=== PATIENT | female | born 1955 | race Caucasian/White ===

== ENCOUNTER → 2016-06-15 | Outpatient (CLI) | payer BC ==
--- NOTE | 2016-06-15 10:02 | US ---
EXAMINATION TYPE: US abdomen complete DATE OF EXAM: 06/15/2016 9:04 AM COMPARISON: CT abdomen pelvis June 01, 2010 CLINICAL HISTORY: Epigastric Pain R10.13. EXAM MEASUREMENTS: Liver Length: 15.9 cm Gallbladder Wall: 0.2 cm CBD: 0.5 cm Spleen: 13.1 cm Right Kidney: 9.7 x 4.4 x 6.2 cm Left Kidney: 10.4 x 5.2 x 5.1 cm TECHNOLOGIST IMPRESSION: no gross abnormality identified Pancreas: Obscured by bowel gas Liver: wnl Gallbladder:no stones Evidence for sonographic Baker's sign: no CBD: wnl Spleen: wnl Right Kidney: No hydronephrosis or masses seen Left Kidney: No hydronephrosis or masses seen Upper IVC: wnl Abd Aorta: wnl The liver is homogenous. The intrahepatic portion of the IVC and proximal abdominal aorta are within normal limits. There is no evidence of cholelithiasis. Common bile duct is unremarkable. The panc reas is suboptimally evaluated due to shadowing from overlying bowel gas. The spleen is mildly enlar ged without focal intrasplenic mass identified. Kidneys are symmetric and free of hydronephrosis. N o renal lesions are seen. IMPRESSION: No significant acute finding is seen to account for patient's symptoms. Mild splenomegaly is noted.
== END | disposition home or self-care (01) ==
LOC: RADUSWWP 08:37
PROVIDERS: ATTEND Family Medicine
DX: R16.1 Splenomegaly, not elsewhere classified (principal)
CPT/HCPCS: 76700

== ENCOUNTER 2016-06-17 09:25 | Emergency (ER) | payer BC ==
[2016-06-17] MEDS ORDERED: SODIUM CHLORIDE 0.9% 1,000 ML IV STA (09:56)
[2016-06-17] MEDS ORDERED: ONDANSETRON 4 MG/2 ML VIAL IVP STA (09:56)
--- NOTE | 2016-06-17 09:59 | ED ---
General Adult HPI - General Chief complaint: Urogenital Stated complaint: POSS UTI Time Seen by Provider: 06/17/16 09:46 Source: patient, RN notes reviewed Mode of arrival: ambulatory Limitations: no limitations - History of Present Illness Initial comments: Patient is a 60-year-old female who presents emergency room today with a chief complaint of left-sided back pain. Does admit that she was at the family doctor earlier in the week diagnosed with urinary tract infection and started on Bactrim. Patient states that she feels that the symptoms are not improving or getting worse. She states she felt a little lightheaded today. She states that her appetite is been decreased. States she's had some pain to the left side of her lower back. Denies any injury or trauma. States tried Tylenol last night. Does admit that she had a low-grade fever 10 1F at home. Patient admits that she's feeling nauseated. Patient denies any other complaints or symptoms currently. Patient denies any recent fever, chills, shortness of breath, chest pain, numbness or tingling, dysuria or hematuria, constipation or diarrhea, headaches or visual changes, or any other complaints. - Related Data Home Medications Medication Instructions Recorded Confirmed Bisacodyl [Dulcolax] 5 mg PO DAILY 06/17/16 06/17/16 Omeprazole [PriLOSEC] 20 mg PO AC-BID 06/17/16 06/17/16 Sertraline HCl [Zoloft] 25 mg PO DAILY 06/17/16 06/17/16 Sulfamethox-Tmp 800-160Mg [Bactrim 1 tab PO Q12HR 06/17/16 06/17/16 DS 800-160 mg] Allergies Allergy/AdvReac Type Severity Reaction Status Date / Time No Known Allergies Allergy Verified 06/17/16 09:34 Review of Systems ROS Statement: Those systems with pertinent positive or pertinent negative responses have been documented in the HPI. ROS Other: All systems not noted in ROS Statement are negative. Past Medical History Past Medical History: GERD/Reflux Additional Past Medical History / Comment(s): ulcers History of Any Multi-Drug Resistant Organisms: None Reported Past Surgical History: Hysterectomy Additional Past Surgical History / Comment(s): lap band, bladder lift Past Psychological History: No Psychological Hx Reported Smoking Status: Never smoker Past Alcohol Use History: None Reported Past Drug Use History: None Reported General Exam - General Exam Comments Initial Comments: General: The patient is awake and alert, in no distress, and does not appear acutely ill. Eye: Pupils are equal, round and reactive to light, extra-ocular movements are intact. No nystagmus. There is normal conjunctiva bilaterally. No signs of icterus. Ears, nose, mouth and throat: There are moist mucous membranes and no oral lesions. Neck: The neck is supple, there is no tenderness or JVD. Cardiovascular: There is a regular rate and rhythm. No murmur, rub or gallop is appreciated. Respiratory: Lungs are clear to auscultation, respirations are non-labored, breath sounds are equal. No wheezes, stridor, rales, or rhonchi. Gastrointestinal: Soft, non-distended, non-tender abdomen without masses or organomegaly noted. There is no rebound or guarding present. No CVA tenderness. Bowel sounds are unremarkable. Musculoskeletal: Normal ROM, no tenderness. Strength 5/5. Sensation intact. Pulses equal bilaterally 2+. Neurological: A&O x 3. CN II-XII intact, There are no obvious motor or sensory deficits. Coordination appears grossly intact. Speech is normal. Skin: Skin is warm and dry and no rashes or lesions are noted. Psychiatric: Cooperative, appropriate mood & affect, normal judgment. Limitations: no limitations Course Vital Signs 06/17/16 06/17/16 09:30 12:08 Temperature 98.7 F 98 F Pulse Rate 114 H 98 Respiratory 20 18 Rate Blood Pressure 120/74 126/68 O2 Sat by Pulse 98 98 Oximetry Medical Decision Making - Medical Decision Making Case discussed in detail with attending physician Dr. Ac. Patient reexamined at this time shows no signs of distress. Patient will be discharged home and asked CT is negative. Patient urinalysis review does show calcium oxide was discussed about possible passage of a kidney stone. She states no history of stones. At this time she is resting comfortably. Her lab work is unremarkable. No sign of infection. Currently on Bactrim and advise continue this antibiotic culture currently pending at this time. Advised close follow- up the family doctor over the next 2 days. Advised return here to emergency room if any symptoms increase or worsen or for any other concerns. Patient and family member at bedside state understanding and are in agreement with this plan. - Lab Data Result diagrams: 06/17/16 10:20 06/17/16 10:20 Lab Results 06/17/16 06/17/16 06/17/16 Range/Units 10:20 10:20 10:20 WBC 3.7 L (3.8-10.6) k/uL RBC 4.77 (3.80-5.40) m/uL Hgb 13.7 (11.4-16.0) gm/dL Hct 41.1 (34.0-46.0) % MCV 86.0 (80.0-100.0) fL MCH 28.7 (25.0-35.0) pg MCHC 33.3 (31.0-37.0) g/dL RDW 13.6 (11.5-15.5) % Plt Count 156 (150-450) k/uL Neutrophils % 86 % Lymphocytes % 5 % Monocytes % 7 % Eosinophils % 2 % Basophils % 0 % Neutrophils # 3.2 (1.3-7.7) k/uL Lymphocytes # 0.2 L (1.0-4.8) k/uL Monocytes # 0.2 (0-1.0) k/uL Eosinophils # 0.1 (0-0.7) k/uL Basophils # 0.0 (0-0.2) k/uL Sodium 139 (137-145) mmol/L Potassium 4.1 (3.5-5.1) mmol/L Chloride 103 (98-107) mmol/L Carbon Dioxide 22 (22-30) mmol/L Anion Gap 14 mmol/L BUN 13 (7-17) mg/dL Creatinine 0.97 (0.52-1.04) mg/dL Est GFR (MDRD) Af Amer >60 (>60 ml/min/1.73 sqM) Est GFR (MDRD) Non-Af 59 (>60 ml/min/1.73 sqM) Glucose 96 (74-99) mg/dL Plasma Lactic Acid Carlos (0.7-2.0) mmol/L Calcium 9.2 (8.4-10.2) mg/dL Total Bilirubin 0.9 (0.2-1.3) mg/dL AST 43 H (14-36) U/L ALT 37 (9-52) U/L Alkaline Phosphatase 78 (38-126) U/L Total Protein 7.2 (6.3-8.2) g/dL Albumin 4.1 (3.5-5.0) g/dL Amylase 48 (30-110) U/L Lipase 54 (23-300) U/L Urine Color Yellow Urine Appearance Turbid H (Clear) Urine pH 6.0 (5.0-8.0) Ur Specific [place] 1.022 (1.001-1.035) Urine Protein 1+ H (Negative) Urine Glucose (UA) Negative (Negative) Urine Ketones 3+ H (Negative) Urine Blood Negative (Negative) Urine Nitrite Negative (Negative) Urine Bilirubin 1+ H (Negative) Urine Urobilinogen 2.0 (<2.0) mg/dL Ur Leukocyte Esterase Moderate H (Negative) Urine RBC 13 H (0-5) /hpf Ur Squamous Epith Cells 25 H (0-4) /hpf Calcium Oxalate Crystal Many H (None) /hpf Urine Bacteria Rare H (None) /hpf Urine Mucus Many H (None) /hpf 06/17/ Range/Units 10:20 WBC (3.8-10.6) k/uL RBC (3.80-5.40) m/uL Hgb (11.4-16.0) gm/dL Hct (34.0-46.0) % MCV (80.0-100.0) fL MCH (25.0-35.0) pg MCHC (31.0-37.0) g/dL RDW (11.5-15.5) % Plt Count (150-450) k/uL Neutrophils % % Lymphocytes % % Monocytes % % Eosinophils % % Basophils % % Neutrophils # (1.3-7.7) k/uL Lymphocytes # (1.0-4.8) k/uL Monocytes # (0-1.0) k/uL Eosinophils # (0-0.7) k/uL Basophils # (0-0.2) k/uL Sodium (137-145) mmol/L Potassium (3.5-5.1) mmol/L Chloride (98-107) mmol/L Carbon Dioxide (22-30) mmol/L Anion Gap mmol/L BUN (7-17) mg/dL Creatinine (0.52-1.04) mg/dL Est GFR (MDRD) Af Amer (>60 ml/min/1.73 sqM) Est GFR (MDRD) Non-Af (>60 ml/min/1.73 sqM) Glucose (74-99) mg/dL Plasma Lactic Acid Carlos 1.0 (0.7-2.0) mmol/L Calcium (8.4-10.2) mg/dL Total Bilirubin (0.2-1.3) mg/dL AST (14-36) U/L ALT (9-52) U/L Alkaline Phosphatase (38-126) U/L Total Protein (6.3-8.2) g/dL Albumin (3.5-5.0) g/dL Amylase (30-110) U/L Lipase (23-300) U/L Urine Color Urine Appearance (Clear) Urine pH (5.0-8.0) Ur Specific [place] (1.001-1.035) Urine Protein (Negative) Urine Glucose (UA) (Negative) Urine Ketones (Negative) Urine Blood (Negative) Urine Nitrite (Negative) Urine Bilirubin (Negative) Urine Urobilinogen (<2.0) mg/dL Ur Leukocyte Esterase (Negative) Urine RBC (0-5) /hpf Ur Squamous Epith Cells (0-4) /hpf Calcium Oxalate Crystal (None) /hpf Urine Bacteria (None) /hpf Urine Mucus (None) /hpf Disposition Clinical Impression: Flank pain Disposition: HOME SELF-CARE Condition: Good Instructions: Flank Pain (ED) Additional Instructions: Please use medication as discussed. Please follow-up with family doctor in the next 2 days. Please return to emergency room if the symptoms increase or worsen or for any other concerns. Time of Disposition: 12:43
[2016-06-17 10:45] LABS: Appearance,Urine Turbid (Clear); Bacteria,Urine Rare /hpf; Bilirubin,Urine 1+ (Negative); Calcium Oxalate Crystals,Urine Many /hpf; Glucose,Urine (UA) Negative (Negative); Ketones,Urine 3+ (Negative); Leukocyte Esterase,Urine Moderate (Negative); Mucus,Urine Many /hpf; Nitrite,Urine Negative (Negative); Particle Count 12230; Protein,Urine 1+ (Negative); RBC,Urine 13 /hpf (0-5); Specific Gravity,Urine 1.022 (1.001-1.035); Squamous Epithelial Cell,Urine 25 /hpf (0-4); UA Billing (MACRO vs. MICRO) MICRO
[2016-06-17 10:47] LABS: ALT 37 U/L (9-52); AST 43 U/L (14-36); Alkaline Phosphatase 78 U/L (38-126); Amylase 48 U/L (30-110); Anion Gap 14 mmol/L; Blood Urea Nitrogen 13 mg/dL (7-17); Calcium 9.2 mg/dL (8.4-10.2); Carbon Dioxide 22 mmol/L (22-30); Chloride 103 mmol/L (98-107); Glucose 96 mg/dL (74-99); Non-African American GFR(MDRD) 59 (>60 ml/min/1.73 sqM); Potassium 4.1 mmol/L (3.5-5.1); Sodium 139 mmol/L (137-145); Total Bilirubin 0.9 mg/dL (0.2-1.3); Total Protein 7.2 g/dL (6.3-8.2)
[2016-06-17 10:52] LABS: Basophils % (A) 0 %; CH 29.2; CHCM 34.1; Eosinophils # (A) 0.1 k/uL (0-0.7); Eosinophils % (A) 2 %; HCT 41.1 % (34.0-46.0); HDW 2.52; HGB 13.7 gm/dL (11.4-16.0); Luc # (Auto) 0.06; Luc % (Auto) 2; Lymphocytes # (A) 0.2 k/uL (1.0-4.8); Lymphocytes % (A) 5 %; MCH 28.7 pg (25.0-35.0); MCHC 33.3 g/dL (31.0-37.0); Mean Platelet Volume 8.1; Monocytes # (A) 0.2 k/uL (0-1.0); Monocytes % (A) 7 %; Neutrophils # (A) 3.2 k/uL (1.3-7.7); Neutrophils % (A) 86 %; RBC 4.77 m/uL (3.80-5.40); RDW 13.6 % (11.5-15.5); WBC 3.7 k/uL (3.8-10.6); WBC (Perox) 3.88
[2016-06-17] MEDS ORDERED: KETOROLAC 30 MG/ML 1 ML VIAL IVP STA (11:08)
--- NOTE | 2016-06-17 11:59 | CT ---
EXAMINATION TYPE: CT abdomen pelvis wo con DATE OF EXAM: 06/17/2016 11:45 AM HISTORY: Possible UTI, pain. CT DLP: 1083.10 mGycm. Automated Exposure Control for Dose Reduction was Utilized. TECHNIQUE: CT scan of the abdomen and pelvis is performed without oral or IV contrast. COMPARISON: CT abdomen pelvis June 01, 2010 FINDINGS: Within the limitations of a non-contrast study, the following observations are made. LUNG BASES: No significant abnormality is appreciated. LIVER/GB: Liver is diffusely low dense consistent with fatty infiltration. PANCREAS: No significant abnormality is seen. SPLEEN: Spleen remains mildly enlarged at 14.3 cm on long axis on axial image 12. ADRENALS: No significant abnormality is seen. KIDNEYS: No renal stones or hydronephrosis is seen bilaterally. Bladder is poorly distended otherwise is unremarkable without intraluminal calculus or suspicious wall thickening BOWEL: Fluid-filled cecum is present. Correlate for diarrhea. No suspicious small or large bowel dila tation is noted. Lap band device is stable and satisfactory in position. Small hiatal hernia is noted . GENITAL ORGANS: Uterus is surgically absent. LYMPH NODES: No greater than 1cm abdominal or pelvic lymph nodes are appreciated. OSSEOUS STRUCTURES: There is disc space narrowing with vacuum disc phenomenon at lumbosacral junction . Posterior spur disc complex is present. There is additional anterior spurring with disc space narro wing and sclerosis anteriorly in the lower thoracic spine. There is facet arthropathy in the lower valentine mbar spine. OTHER: No significant additional abnormality is seen. IMPRESSION: No renal stones or hydronephrosis is seen bilaterally. No significant acute finding is se en to account for patient's symptoms.
[2016-06-17 12:54] VITALS: BP 101/55; PULSE 83; RESP 16; TEMP 97.8
--- NOTE | 2016-06-17 17:29 | XR ---
Abdomen HISTORY: Pain Correlation to CT abdomen pelvis same date Frontal view of the abdomen on 2 images. Patient is post lap band. Lung bases are clear. No bowel obstruction or pneumoperitoneum. Density pre sent within the right hemipelvis may be due to postop change or luminal medication. IMPRESSION: Postop changes.
== END 2016-06-17 12:53 | disposition home or self-care (01) ==
LOC: EC 09:25
DX: R10.9 Unspecified abdominal pain (principal); R63.0 Anorexia; M54.9 Dorsalgia, unspecified; K21.9 Gastro-esophageal reflux disease without esophagitis; R42 Dizziness and giddiness; R11.0 Nausea; Z79.899 Other long term (current) drug therapy; Z87.19 Personal history of other diseases of the digestive system; Z87.440 Personal history of urinary (tract) infections; Z98.84 Bariatric surgery status; Z90.710 Acquired absence of both cervix and uterus
CPT/HCPCS: 99284; 96374; 96375; 96361; 36415; 80053; 82150; 83605; 83690; 85025; 81001; 87040; 87086; 74000; 74176; J2405; J1885

== ENCOUNTER → 2017-05-30 | Outpatient (CLI) | payer BC ==
--- NOTE | 2017-05-31 08:19 | MM ---
Reason for exam: screening (asymptomatic). Last mammogram was performed 1 year and 2 months ago. History: Patient is postmenopausal. Taking estrogen. Physical Findings: A clinical breast exam by your physician is recommended on an annual basis and results should be correlated with mammographic findings. MG Screening Mammo w CAD Bilateral CC and MLO view(s) were taken. Prior study comparison: March 14, 2016, bilateral MG screening mammo w CAD. March 30, 2015, bilateral MG screening mammo w CAD. There are scattered fibroglandular densities. There is no discrete abnormality. No significant changes when compared with prior studies. ASSESSMENT: Negative, BI-RAD 1 RECOMMENDATION: Routine screening mammogram of both breasts in 1 year.
== END | disposition home or self-care (01) ==
LOC: RADMAMWWP 08:25
PROVIDERS: ATTEND Obstetrics & Gynecology
DX: Z12.31 Encounter for screening mammogram for malignant neoplasm of breast (principal)
CPT/HCPCS: 77067

== ENCOUNTER → 2018-10-09 | Outpatient (CLI) | payer BC ==
--- NOTE | 2018-10-10 10:42 | MM ---
Reason for exam: screening (asymptomatic). Last mammogram was performed 1 year and 4 months ago. History: Patient is postmenopausal. Taking estrogen. Physical Findings: A clinical breast exam by your physician is recommended on an annual basis and results should be correlated with mammographic findings. MG Screening Mammo w CAD Bilateral CC and MLO view(s) were taken. Prior study comparison: May 30, 2017, bilateral MG screening mammo w CAD. March 14, 2016, bilateral MG screening mammo w CAD. There are scattered fibroglandular densities. Benign appearing bilateral calcifications. No suspicious abnormality. No significant changes when compared with prior studies. ASSESSMENT: Benign, BI-RAD 2 RECOMMENDATION: Routine screening mammogram of both breasts in 1 year.
== END | disposition home or self-care (01) ==
LOC: RADMAMWWP 07:52
PROVIDERS: ATTEND Family Medicine
DX: Z12.31 Encounter for screening mammogram for malignant neoplasm of breast (principal)
CPT/HCPCS: 77067

== ENCOUNTER 2019-09-03 22:10 | Observation (INO) | payer BC ==
[2019-09-03] MEDS ORDERED: ONDANSETRON 4 MG/2 ML VIAL IVP STA (22:51)
[2019-09-03] MEDS ORDERED: SODIUM CHLORIDE 0.9% 1,000 ML IV STA (22:51)
[2019-09-03] MEDS ORDERED: MORPHINE SULFATE 4 MG/ML SYRINGE IV STA (22:51)
--- NOTE | 2019-09-03 23:01 | ED ---
Abdominal Pain HPI - General Source: patient Mode of arrival: wheelchair Limitations: no limitations <Rupal Gómez - Last Filed: 09/04/19 02:57> <Lyudmila Calhoun - Last Filed: 09/04/19 20:23> - General Chief Complaint: Abdominal Pain Stated Complaint: Abd pain, back pain Time Seen by Provider: 09/03/19 22:45 - History of Present Illness Initial Comments: Patient is a 63-year-old female presenting to the emergency department with complaints of abdominal pain. She states she has been having some lower a bdominal pressure for the past month but then today around 4 PM, she started having severe upper abdominal pain has been constant in nature. She states the pain radiated across her entire upper abdomen with some radiation into her back. She admits to mild nausea, no vomiting. She states she's never had pain like this before. She does admit to partial hysterectomy. She denies any fever, chills, chest pain, shortness of breath. She has no further complaints at this time. Upon arrival to the ER, blood pressure is elevated at 147 /111, rest of vitals are normal. (Rupal Gómez) - Related Data Home Medications Medication Instructions Recorded Confirmed Sertraline HCl [Zoloft] 25 mg PO DAILY 06/17/16 09/04/19 Omeprazole [PriLOSEC] 40 mg PO DAILY 09/04/19 09/04/19 Allergies Allergy/AdvReac Type Severity Reaction Status Date / Time sulfamethoxazole Allergy Unknown Verified 09/04/19 08:36 [From Bactrim] trimethoprim [From Bactrim] Allergy Unknown Verified 09/04/19 08:36 Review of Systems ROS Other: All systems not noted in ROS Statement are negative. <Rupal Gómez - Last Filed: 09/04/19 02:57> ROS Other: All systems not noted in ROS Statement are negative. <Lyudmila Calhoun - Last Filed: 09/04/19 20:23> ROS Statement: Those systems with pertinent positive or pertinent negative responses have been documented in the HPI. Past Medical History Past Medical History: GERD/Reflux Additional Past Medical History / Comment(s): ulcers History of Any Multi-Drug Resistant Organisms: None Reported Past Surgical History: Bladder Surgery, Hysterectomy Additional Past Surgical History / Comment(s): lap band, bladder lift Past Psychological History: Anxiety Smoking Status: Never smoker Past Alcohol Use History: None Reported Past Drug Use History: None Reported <Rupal Gómez - Last Filed: 09/04/19 02:57> - Past Family History Father Additional Family Medical History / Comment(s): pancreatic CA Mother Family Medical History: No Reported History <Lyudmila Calhoun P - Last Filed: 09/04/19 20:23> General Exam Limitations: no limitations <Rupal Gómez - Last Filed: 09/04/19 02:57> - General Exam Comments Initial Comments: GENERAL: Patient appears diaphoretic, holding abdominal area, appears to be in moderate distress. HEAD: Atraumatic, normocephalic. EYES: Pupils equal round and reactive to light, extraocular movements intact, sclera anicteric, conjunctiva are normal. ENT: TMs normal, nares patent, oropharynx clear without exudates. Moist mucous membranes. NECK: Normal range of motion, supple without lymphadenopathy or JVD. LUNGS: Breath sounds clear to auscultation bilaterally and equal. No wheezes rales or rhonchi. HEART: Regular rate and rhythm without murmurs, rubs or gallops. ABDOMEN: Mild tenderness to palpation of the lower abdomen, severe tenderness with palpation of the entire upper abdomen. It does not appear distended. Hypoactive bowel sounds. No masses appreciated. : Deferred EXTREMITIES: Normal range of motion, no pitting or edema. No clubbing or cyanosis. NEUROLOGICAL: Normal speech, normal gait. SKIN: Warm, Dry, normal turgor, no rashes or lesions noted. (Rupal Gómez) Course Vital Signs 09/03/19 09/04/19 09/04/19 22:36 01:32 01:46 Temperature 97.6 F 98.5 F Pulse Rate 70 66 Pulse Rate [ 60 Pulse Oximetery ] Respiratory 18 16 16 Rate Blood Pressure 147/111 111/68 Blood Pressure 111/62 [Right Arm Supine] O2 Sat by Pulse 99 96 97 Oximetry Medical Decision Making - Lab Data Result diagrams: 09/03/19 23:09 09/03/19 23:09 <Rupal Gómez - Last Filed: 09/04/19 02:57> - Lab Data Result diagrams: 09/03/19 23:09 09/03/19 23:09 <Lyudmila Calhoun - Last Filed: 09/04/19 20:23> - Medical Decision Making Patient is a 63-year-old female here for upper abdominal pain with a sudden and severe onset this afternoon. Patient is also had lower abdominal discomfort for 1 month. Lab work shows no leukocytosis, lactic acid was 2.1, no other acute abnormalities. Urine shows no signs of infection. Given the sudden and severe nature of abdominal pain, a CTA was ordered and shows no evidence of aneurysm or dissection. There are distended loops of mid small bowel consistent with ileus, partial mechanical obstruction is not excluded. There also appears to be an abnormality in the pelvic region. I did order a pelvic ultrasound which will be performed in the morning. Patient will be admitted for intractable abdominal pain. Patient is in agreement with this plan of care. We will continue patient with pain control as well as fluids and Zofran as needed. Case discussed with Dr. Calhoun. (Rupal Gómez) - Lab Data Lab Results 09/03/19 09/03/19 09/03/19 Range/Units 23:09 23:09 23:09 WBC (3.8-10.6) k/uL RBC (3.80-5.40) m/uL Hgb (11.4-16.0) gm/dL Hct (34.0-46.0) % MCV (80.0-100.0) fL MCH (25.0-35.0) pg MCHC (31.0-37.0) g/dL RDW (11.5-15.5) % Plt Count (150-450) k/uL Neutrophils % % Lymphocytes % % Monocytes % % Eosinophils % % Basophils % % Neutrophils # (1.3-7.7) k/uL Lymphocytes # (1.0-4.8) k/uL Monocytes # (0-1.0) k/uL Eosinophils # (0-0.7) k/uL Basophils # (0-0.2) k/uL PT 10.0 (9.0-12.0) sec INR 1.0 (<1.2) APTT 26.4 (22.0-30.0) sec Sodium 136 L (137-145) mmol/L Potassium 3.7 (3.5-5.1) mmol/L Chloride 103 (98-107) mmol/L Carbon Dioxide 24 (22-30) mmol/L Anion Gap 9 mmol/L BUN 9 (7-17) mg/dL Creatinine 0.65 (0.52-1.04) mg/dL Est GFR (CKD-EPI)AfAm >90 (>60 ml/min/1.73 sqM) Est GFR (CKD-EPI)NonAf >90 (>60 ml/min/1.73 sqM) Glucose 127 H (74-99) mg/dL Lactic Ac Sepsis Rflx Plasma Lactic Acid Carlos 2.1 H* (0.7-2.0) mmol/L Calcium 9.8 (8.4-10.2) mg/dL Magnesium 1.9 (1.6-2.3) mg/dL Total Bilirubin 0.9 (0.2-1.3) mg/dL AST 28 (14-36) U/L ALT 16 (4-34) U/L Alkaline Phosphatase 87 (38-126) U/L Total Protein 7.2 (6.3-8.2) g/dL Albumin 4.5 (3.5-5.0) g/dL Amylase 61 (30-110) U/L Lipase 68 (23-300) U/L Urine Color Urine Appearance (Clear) Urine pH (5.0-8.0) Ur Specific [place] (1.001-1.035) Urine Protein (Negative) Urine Glucose (UA) (Negative) Urine Ketones (Negative) Urine Blood (Negative) Urine Nitrite (Negative) Urine Bilirubin (Negative) Urine Urobilinogen (<2.0) mg/dL Ur Leukocyte Esterase (Negative) 09/03/19 09/03/19 09/04/19 Range/Units 23:09 23:38 00:23 WBC 8.3 (3.8-10.6) k/uL RBC 4.98 (3.80-5.40) m/uL Hgb 13.8 (11.4-16.0) gm/dL Hct 43.2 (34.0-46.0) % MCV 86.9 (80.0-100.0) fL MCH 27.8 (25.0-35.0) pg MCHC 32.0 (31.0-37.0) g/dL RDW 13.5 (11.5-15.5) % Plt Count 255 (150-450) k/uL Neutrophils % 78 % Lymphocytes % 14 % Monocytes % 5 % Eosinophils % 1 % Basophils % 0 % Neutrophils # 6.5 (1.3-7.7) k/uL Lymphocytes # 1.2 (1.0-4.8) k/uL Monocytes # 0.5 (0-1.0) k/uL Eosinophils # 0.1 (0-0.7) k/uL Basophils # 0.0 (0-0.2) k/uL PT (9.0-12.0) sec INR (<1.2) APTT (22.0-30.0) sec Sodium (137-145) mmol/L Potassium (3.5-5.1) mmol/L Chloride (98-107) mmol/L Carbon Dioxide (22-30) mmol/L Anion Gap mmol/L BUN (7-17) mg/dL Creatinine (0.52-1.04) mg/dL Est GFR (CKD-EPI)AfAm (>60 ml/min/1.73 sqM) Est GFR (CKD-EPI)NonAf (>60 ml/min/1.73 sqM) Glucose (74-99) mg/dL Lactic Ac Sepsis Rflx Y Plasma Lactic Acid Carlos (0.7-2.0) mmol/L Calcium (8.4-10.2) mg/dL Magnesium (1.6-2.3) mg/dL Total Bilirubin (0.2-1.3) mg/dL AST (14-36) U/L ALT (4-34) U/L Alkaline Phosphatase (38-126) U/L Total Protein (6.3-8.2) g/dL Albumin (3.5-5.0) g/dL Amylase (30-110) U/L Lipase (23-300) U/L Urine Color Yellow Urine Appearance Clear (Clear) Urine pH 6.5 (5.0-8.0) Ur Specific [place] >1.050 H (1.001-1.035) Urine Protein Negative (Negative) Urine Glucose (UA) Negative (Negative) Urine Ketones 1+ H (Negative) Urine Blood Negative (Negative) Urine Nitrite Negative (Negative) Urine Bilirubin Negative (Negative) Urine Urobilinogen <2.0 (<2.0) mg/dL Ur Leukocyte Esterase Negative (Negative) Disposition Is patient prescribed a controlled substance at d/c from ED?: No Decision Date: 09/04/19 Decision Time: 01:24 <Rupal Gómez - Last Filed: 09/04/19 02:57> <Lyudmila Calhoun - Last Filed: 09/04/19 20:23> Clinical Impression: Intractable abdominal pain, Nausea Disposition: ADMITTED IP TO THIS HOSP Condition: Stable
[2019-09-03 23:22] LABS: Basophils % (A) 0 %; Eosinophils # (A) 0.1 k/uL (0-0.7); Eosinophils % (A) 1 %; HCT 43.2 % (34.0-46.0); HGB 13.8 gm/dL (11.4-16.0); Lymphocytes # (A) 1.2 k/uL (1.0-4.8); Lymphocytes % (A) 14 %; MCH 27.8 pg (25.0-35.0); MCV 86.9 fL (80.0-100.0); Monocytes # (A) 0.5 k/uL (0-1.0); Monocytes % (A) 5 %; Neutrophils # (A) 6.5 k/uL (1.3-7.7); Neutrophils % (A) 78 %; Platelet Count 255 k/uL (150-450); RBC 4.98 m/uL (3.80-5.40); RDW 13.5 % (11.5-15.5); WBC 8.3 k/uL (3.8-10.6)
[2019-09-03 23:33] LABS: ALT 16 U/L (4-34); AST 28 U/L (14-36); African American GFR (CKD) >90 (>60 ml/min/1.73 sqM); Albumin 4.5 g/dL (3.5-5.0); Alkaline Phosphatase 87 U/L (38-126); Amylase 61 U/L (30-110); Anion Gap 9 mmol/L; Blood Urea Nitrogen 9 mg/dL (7-17); Calcium 9.8 mg/dL (8.4-10.2); Carbon Dioxide 24 mmol/L (22-30); Chloride 103 mmol/L (98-107); Glucose 127 mg/dL (74-99); Magnesium 1.9 mg/dL (1.6-2.3); Non-African American GFR(CKD) >90 (>60 ml/min/1.73 sqM); Potassium 3.7 mmol/L (3.5-5.1); Sodium 136 mmol/L (137-145); Total Bilirubin 0.9 mg/dL (0.2-1.3); Total Protein 7.2 g/dL (6.3-8.2)
[2019-09-03 23:39] LABS: Partial Thromboplastin Time 26.4 sec (22.0-30.0)
--- NOTE | 2019-09-04 00:24 | CT ---
EXAMINATION TYPE: CT angio abdomen pelvis DATE OF EXAM: 09/04/2019 COMPARISON: None HISTORY: severe abdominal pain CT DLP: 1880.3 mGycm Automated exposure control for dose reduction was used. CONTRAST: Performed with IV Contrast, patient injected with 100mL mL of Isovue 300. Images were obtained from the diaphragm to the floor the pelvis with no contrast. Images were obtaine d from the diaphragm to the floor the pelvis with intravenous contrast and 3-D post processed images. Lung bases are clear of infiltrate. There is no pleural effusion. Heart size is normal. There is mild hiatal hernia. There is gastric sleeve noted. Stomach has normal size. Liver and gallbladder appear normal. Bile ducts are not dilated. Spleen is intact. There is no pancreatic mass. There is no adrena l mass. Kidneys show satisfactory contrast opacification. There is no hydronephrosis. There is no rosie dence of renal calculus. Ureters are not dilated. There is no retroperitoneal adenopathy. Ladder dist ends smoothly. There is no inguinal hernia. There is small amount of free fluid in the pelvis. There are some distended air and fluid-filled loops of small bowel in the mid abdomen. Small bowel measures up to 3.1 cm. Appendix is posterior and appears normal. There is no sign of free air. There is patency of the celiac artery and superior mesenteric artery. Abdominal aorta has normal size and contour. There is patency of the renal arteries. There is bilateral patency of the iliac and fem oral arteries. There is no evidence of hemodynamic stenosis. There is no evidence of arterial aneurys m or dissection. There are some spondylotic changes in the lower lumbar spine. There is no compression fracture. Bony pelvis is intact. IMPRESSION: Negative CT angiogram of the abdomen and pelvis. No evidence of aneurysm or dissection. No evidence o f stenosis. Mild free fluid in the pelvis. Distended loops of mid small bowel consistent with ileus. Partial mechanical obstruction not excluded. Transition point not identified.
[2019-09-04 00:32] LABS: Appearance,Urine Clear (Clear); Bilirubin,Urine Negative (Negative); Blood,Urine Negative (Negative); Color,Urine Yellow; Glucose,Urine (UA) Negative (Negative); Ketones,Urine 1+ (Negative); Leukocyte Esterase,Urine Negative (Negative); Nitrite,Urine Negative (Negative); PH, Urine 6.5 (5.0-8.0); Protein,Urine Negative (Negative); Urobilinogen,Urine <2.0 mg/dL (<2.0)
[2019-09-04 00:40] LABS: Specific Gravity,Urine >1.050 (1.001-1.035)
[2019-09-04] MEDS ORDERED: MORPHINE SULFATE 4 MG/ML SYRINGE IVP STA (01:05)
[2019-09-04] MEDS ORDERED: ACETAMINOPHEN TAB 325 MG TAB PO PRN (01:22)
[2019-09-04] MEDS ORDERED: ONDANSETRON 4 MG/2 ML VIAL IVP PRN (01:22)
[2019-09-04] MEDS ORDERED: KETOROLAC 30 MG/ML 1 ML VIAL IVP PRN (01:22)
[2019-09-04] MEDS ORDERED: NALOXONE 0.4 MG/ML 1 ML VIAL IV PRN (01:22)
[2019-09-04] MEDS: SODIUM CHLORIDE 0.9% 1,000 ML IV SCH ×2 (02:11→21:06)
[2019-09-04] MEDS: MORPHINE SULFATE 4 MG/ML SYRINGE IV PRN ×2 (05:45→18:19)
--- NOTE | 2019-09-04 08:51 | US ---
EXAMINATION TYPE: US transvaginal DATE OF EXAM: 09/04/2019 COMPARISON: CT dated 09/04/2019 and 06/17/2016 CLINICAL HISTORY: pain. partial hysterectomy, midline pain. TECHNIQUE: Transvaginal (TV). Date of LMP: unknown EXAM MEASUREMENTS: 1. Uterus: Surgically absent 2. Endometrium: Surgically absent 3. Right Ovary: Obscured by overlying bowel gas 4. Left Ovary: Obscured by overlying bowel gas 5. Bilateral Adnexa: Free fluid seen in left adnexa. Prominent possible loop of bowel visualized ve rsus less likely adnexal mass measuring 4.3 cm. Slight movement was seen. 6. Posterior cul-de-sac: Free fluid IMPRESSION: Small amount of free fluid is seen dependently in the pelvis. There is an oval solid stru cture in the left adnexa that likely represents bowel however sonographic imaging is not definitive. Recent CT was performed without oral contrast and separation of bowel from a left adnexal mass is dif ficult given the surrounding free fluid. Therefore pelvic CT with oral contrast is recommended to ens ure no ovarian mass.
--- NOTE | 2019-09-04 13:02 | P.HPIM ---
History of Present Illness 63-year-old female came in with comments of abdominal pain basically in 2 locations 1 in the epigastric area which is moderate to severe sharp in nature radiating to the back with normal lipase. Patient is also having abdominal pain in bilateral lower quadrants which is crampy in nature [id number] severity of both of these pains improved at this time and she does her pain medications patient was having nausea but did not vomit or may have had 1 episode of vomiting all the symptoms started up a couple days ago. CT of the abdomen was obtained which showed mild ileus, Gen. surgery evaluated the patient. Patient nausea improved as well at this time. As per recommendations from general surgery patient is undergoing HIDA scan. Patient denied any fever chills patient any hematemesis dysuria. Urine analysis within normal limits except for mild proteinuria no other signs or symptoms of infection at this time patient had a vaginal ultrasound which is not really conclusive. Although my suspicion is low for any ovarian pathology because of which have not further proceeding those etiologies. Review of Systems REVIEW OF SYSTEMS: CONSTITUTIONAL: No fever, no malaise, no fatigue. HEENT: No recent visual problems or hearing problems. Denied any sore throat. CARDIOVASCULAR: No chest pain, orthopnea, PND, no palpitations, no syncope. PULMONARY: No shortness of breath, no cough, no hemoptysis. GASTROINTESTINAL: As mentioned in HPI NEUROLOGICAL: No headaches, no weakness, no numbness. HEMATOLOGICAL: Denies any bleeding or petechiae. GENITOURINARY: Denies any burning micturition, frequency, or urgency. MUSCULOSKELETAL/RHEUMATOLOGICAL: Denies any joint pain, swelling, or any muscle pain. ENDOCRINE: Denies any polyuria or polydipsia. The rest of the 14-point review of systems is negative. Past Medical History Past Medical History: GERD/Reflux Additional Past Medical History / Comment(s): ulcers History of Any Multi-Drug Resistant Organisms: None Reported Past Surgical History: Bladder Surgery, Hysterectomy Additional Past Surgical History / Comment(s): lap band, bladder lift Past Anesthesia/Blood Transfusion Reactions: No Reported Reaction Past Psychological History: Anxiety Smoking Status: Never smoker Past Alcohol Use History: None Reported Past Drug Use History: None Reported - Past Family History Father Additional Family Medical History / Comment(s): pancreatic CA Mother Family Medical History: No Reported History Medications and Allergies Home Medications Medication Instructions Recorded Confirmed Type Sertraline HCl [Zoloft] 25 mg PO DAILY 06/17/16 09/04/19 History Omeprazole [PriLOSEC] 40 mg PO DAILY 09/04/19 09/04/19 History Allergies Allergy/AdvReac Type Severity Reaction Status Date / Time sulfamethoxazole Allergy Unknown Verified 09/04/19 08:36 [From Bactrim] trimethoprim [From Bactrim] Allergy Unknown Verified 09/04/19 08:36 Physical Exam Vitals: Vital Signs Temp Pulse Pulse Resp BP BP Pulse Ox 09/04/19 09:12 97.7 F 69 16 117/80 100 09/04/19 08:30 16 09/04/19 05:29 98 F 73 17 100/63 97 09/04/19 01:46 98.5 F 60 16 111/62 97 09/04/19 01:32 66 16 111/68 96 09/03/19 22:36 97.6 F 70 18 147/111 99 Intake and Output 09/03/19 09/04/19 09/04/19 22:59 06:59 14:59 Other: # Voids 1 Weight 90.718 kg 91.444 kg PHYSICAL EXAMINATION: GENERAL: The patient is alert and oriented x3, not in any acute distress. Well developed, well nourished. HEENT: Pupils are round and equally reacting to light. EOMI. No scleral icterus. No conjunctival pallor. Normocephalic, atraumatic. No pharyngeal erythema. No thyromegaly. CARDIOVASCULAR: S1 and S2 present. No murmurs, rubs, or gallops. PULMONARY: Chest is clear to auscultation, no wheezing or crackles. ABDOMEN: Soft, nontender, nondistended, normoactive bowel sounds. No palpable organomegaly. MUSCULOSKELETAL: No joint swelling or deformity. EXTREMITIES: No cyanosis, clubbing, or pedal edema. NEUROLOGICAL: Gross neurological examination did not reveal any focal deficits. SKIN: No rashes. Results CBC & Chem 7: 09/03/19 23:09 09/03/19 23:09 Labs: Abnormal Lab Results - Last 24 Hours (Table) 09/03/19 09/03/19 09/04/19 Range/Units 23:09 23:09 00:23 Sodium 136 L (137-145) mmol/L Glucose 127 H (74-99) mg/dL Plasma Lactic Acid Carlos 2.1 H* (0.7-2.0) mmol/L Ur Specific [place] >1.050 H (1.001-1.035) Urine Ketones 1+ H (Negative) Thrombosis Risk Factor Assmnt - Choose All That Apply Any of the Below Risk Factors Present?: Yes Each Factor Represents 1 point: Obesity (BMI >25) Other Risk Factors: Yes Each Risk Factor Represents 2 Points: Age 61-74 years Other congenital or acquired thrombophilia - If yes, enter type in comment: No Thrombosis Risk Factor Assessment Total Risk Factor Score: 3 Thrombosis Risk Factor Assessment Level: Moderate Risk Assessment and Plan Plan: -Epigastric abdominal pain possibility of this being gastritis peptic ulcer disease or gallbladder disease patient will undergo HIDA scan Toradol will be discontinued patient will be started on Protonix -Bilateral lower abdominal pain probably secondary to ileus: Patient was nothing by mouth once her ultrasound is done if her pain is improved and his nausea is better patient will be started on diet patient does have bowel sounds. -Rule out gallbladder disease -History of gastric dysphagia and reflux disease on Prilosec at home -Anxiety disorder -DVT prophylaxis early ambulation
--- NOTE | 2019-09-04 13:47 | P.GSCN ---
History of Present Illness Consult date: 09/04/19 Reason for Consult: Abdominal pain Requesting physician: Lyudmila Langley History of present illness: CHIEF COMPLAINT: Abdominal pain HISTORY OF PRESENT ILLNESS: 63-year-old patient who presented to the emergency room the chief complaint of abdominal pain. Patient is a history of gastric lap band performed approximately 12 years ago. Patient has lost 75 pounds lifetime. She has not followed up in the bariatric center in over 6 years. Patient reports she has been having some lower abdominal pain and cramping for the past couple weeks. However due to the coronavirus she has been afraid to seek treatment. She reports nausea but no vomiting. She does report an episode of dry heaves yesterday. She does report a change in her bowel habits since May and has been having softer looser stools. PAST MEDICAL HISTORY: See list. PAST SURGICAL HISTORY: See list. SOCIAL HISTORY: No illicit drug use. REVIEW OF SYSTEMS: CONSTITUTIONAL: Denies fever or chills. HEENT: Denies blurred vision, vision changes, or eye pain. Denies hemoptysis CARDIOVASCULAR: Denies chest pain or pressure. RESPIRATORY: No shortness of breath. GASTROINTESTINAL: Refer to HPI for pertinent findings HEMATOLOGIC: Denies bleeding disorders. GENITOURINARY: Denies any blood in urine. SKIN: Denies pruitis. Denies rash. PHYSICAL EXAM: VITAL SIGNS: Reviewed. GENERAL: Well-developed in no acute distress. HEENT: No sclera icterus. Extraocular movements grossly intact. Moist buccal mucosa. Head is atraumatic, normocephalic. ABDOMEN: Soft. Nondistended. Mild tenderness with palpation. NEUROLOGIC: Alert and oriented. Cranial nerves II through XII grossly intact. LABORATORY DATA: WBC 8.3. Hemoglobin 13.8. Platelet count 255. Lactic acid 2.1. Repeat 0.8. ASSESSMENT: 1. Abdominal pain 2. History of gastric lap band PLAN: -Dr. Aguillon removed fluid from patient's lap band. Patient only had 0.5cc in band that was removed. Tolerated well. -Obtain HIDA scan with ejection fraction -Clear liquid diet after HIDA scan Nurse practitioner note has been reviewed by physician. Signing provider agrees with the documented findings, assessment, and plan of care. Past Medical History Past Medical History: GERD/Reflux Additional Past Medical History / Comment(s): ulcers History of Any Multi-Drug Resistant Organisms: None Reported Past Surgical History: Bladder Surgery, Hysterectomy Additional Past Surgical History / Comment(s): lap band, bladder lift Past Anesthesia/Blood Transfusion Reactions: No Reported Reaction Past Psychological History: Anxiety Smoking Status: Never smoker Past Alcohol Use History: None Reported Past Drug Use History: None Reported - Past Family History Father Additional Family Medical History / Comment(s): pancreatic CA Mother Family Medical History: No Reported History Medications and Allergies Home Medications Medication Instructions Recorded Confirmed Type Sertraline HCl [Zoloft] 25 mg PO DAILY 06/17/16 09/04/19 History Omeprazole [PriLOSEC] 40 mg PO DAILY 09/04/19 09/04/19 History Allergies Allergy/AdvReac Type Severity Reaction Status Date / Time sulfamethoxazole Allergy Unknown Verified 09/04/19 08:36 [From Bactrim] trimethoprim [From Bactrim] Allergy Unknown Verified 09/04/19 08:36 Surgical - Exam Vital Signs Temp Pulse Resp BP Pulse Ox 97.6 F 70 18 147/111 99 09/03/19 22:36 09/03/19 22:36 09/03/19 22:36 09/03/19 22:36 09/03/19 22:36 Results - Labs 09/03/19 23:09 09/03/19 23:09 Abnormal Lab Results - Last 24 Hours (Table) 09/03/19 09/03/19 09/04/19 Range/Units 23:09 23:09 00:23 Sodium 136 L (137-145) mmol/L Glucose 127 H (74-99) mg/dL Plasma Lactic Acid Carlos 2.1 H* (0.7-2.0) mmol/L Ur Specific [place] >1.050 H (1.001-1.035) Urine Ketones 1+ H (Negative) Diabetes panel 09/03/19 Range/Units 23:09 Sodium 136 L (137-145) mmol/L Potassium 3.7 (3.5-5.1) mmol/L Chloride 103 (98-107) mmol/L Carbon Dioxide 24 (22-30) mmol/L BUN 9 (7-17) mg/dL Creatinine 0.65 (0.52-1.04) mg/dL Glucose 127 H (74-99) mg/dL Calcium 9.8 (8.4-10.2) mg/dL AST 28 (14-36) U/L ALT 16 (4-34) U/L Alkaline Phosphatase 87 (38-126) U/L Total Protein 7.2 (6.3-8.2) g/dL Albumin 4.5 (3.5-5.0) g/dL Calcium panel 09/03/19 Range/Units 23:09 Calcium 9.8 (8.4-10.2) mg/dL Albumin 4.5 (3.5-5.0) g/dL Pituitary panel 09/03/19 Range/Units 23:09 Sodium 136 L (137-145) mmol/L Potassium 3.7 (3.5-5.1) mmol/L Chloride 103 (98-107) mmol/L Carbon Dioxide 24 (22-30) mmol/L BUN 9 (7-17) mg/dL Creatinine 0.65 (0.52-1.04) mg/dL Glucose 127 H (74-99) mg/dL Calcium 9.8 (8.4-10.2) mg/dL Adrenal panel 09/03/19 Range/Units 23:09 Sodium 136 L (137-145) mmol/L Potassium 3.7 (3.5-5.1) mmol/L Chloride 103 (98-107) mmol/L Carbon Dioxide 24 (22-30) mmol/L BUN 9 (7-17) mg/dL Creatinine 0.65 (0.52-1.04) mg/dL Glucose 127 H (74-99) mg/dL Calcium 9.8 (8.4-10.2) mg/dL Total Bilirubin 0.9 (0.2-1.3) mg/dL AST 28 (14-36) U/L ALT 16 (4-34) U/L Alkaline Phosphatase 87 (38-126) U/L Total Protein 7.2 (6.3-8.2) g/dL Albumin 4.5 (3.5-5.0) g/dL
--- NOTE | 2019-09-04 17:01 | NM ---
EXAMINATION TYPE: NM hepatobiliary w CCK DATE OF EXAM: 09/04/2019 COMPARISON: NONE INDICATION: Abdominal pain TECHNIQUE: After the intravenous administration of 4.37 mCi Tc 99m Mebrofenin hepatobiliary scintigra phy is performed. Images were obtained immediately post injection. FINDINGS: There is prompt uptake and excretion of radiotracer by the liver. Extrahepatic ducts are identified at 10 minutes. The gallbladder is visualized within 10 minutes. Small bowel activity is noted within 60 minutes. At one hour CCK was administered, patient was injected with 1.8 mcg of Kinevac, and gallbladder eject ion fraction is calculated at 16 %, which is low. (Normal >35% and <80%.). IMPRESSION: 1. Biliary hypokinesia.
[2019-09-04] MEDS: PANTOPRAZOLE 40 MG/10 ML VIAL IVP SCH (17:05)
[2019-09-05] MEDS: MORPHINE SULFATE 4 MG/ML SYRINGE IV PRN (02:04)
--- NOTE | 2019-09-05 07:50 | P.PN ---
Subjective Progress Note Date: 09/05/19 CHIEF COMPLAINT: Abdominal pain HISTORY OF PRESENT ILLNESS: Patient examined this morning at the bedside with Dr. Aguillon. Patient continues to have abdominal pain but states it is improved since yesterday. She denies nausea or vomiting. HIDA scan performed revealing ejection fraction of 16%. PHYSICAL EXAM: VITAL SIGNS: Reviewed. GENERAL: Well-developed in no acute distress. HEENT: No sclera icterus. Extraocular movements grossly intact. Moist buccal mucosa. Head is atraumatic, normocephalic. ABDOMEN: Soft. Nondistended. Mild tenderness with palpation. NEUROLOGIC: Alert and oriented. Cranial nerves II through XII grossly intact. ASSESSMENT: 1. Abdominal pain 2. History of gastric lap band 3. Biliary hypokinesia PLAN: -Low fat diet -Stable for discharge home today from a surgical standpoint -Patient is scheduled for outpatient laparoscopic cholecystectomy on Sunday with Dr. Aguillon Nurse practitioner note has been reviewed by physician. Signing provider agrees with the documented findings, assessment, and plan of care. Objective - Vital Signs Vital signs: Vital Signs Temp 98.4 F 09/05/19 04:16 Pulse 89 09/05/19 04:16 Resp 16 09/05/19 04:16 BP 115/78 09/05/19 04:16 Pulse Ox 97 09/05/19 04:16 Intake & Output 09/04/19 09/05/19 09/05/19 18:59 06:59 18:59 Intake Total 1000 Balance 1000 Intake: Intake, IV Titration 1000 Amount Sodium Chloride 0.9% 1, 1000 000 ml @ 60 mls/hr IV . [id number] [facility] Rx#:[id number] Other: # Voids 1 - Labs CBC & Chem 7: 09/03/19 23:09 09/03/19 23:09
[2019-09-05 08:14] VITALS: BP 126/75; PULSE 70; RESP 18; TEMP 98.1
[2019-09-05] MEDS: PANTOPRAZOLE 40 MG/10 ML VIAL IVP SCH (08:24)
[2019-09-05] MEDS: SODIUM CHLORIDE 0.9% 1,000 ML IV SCH (11:46)
--- NOTE | 2019-09-05 12:36 | P.DS ---
Providers Date of admission: 09/04/19 01:21 Attending physician: Adela Sykes Consults: 09/04/19 09:50 Consult Physician Routine Consulting Provider: Adelfo Aguillon Consult Reason/Comments: abdominal pain Do you want consulting provider notified?: Yes Primary care physician: Iker Mares Hospital Course: patient's abdominal pain is significantly better patient had a scan revealed decreased ejection fraction of 16%. patient will undergo outpatient cholecystectomy cleared Surgery. Patient probably has a day because of disease as well patient will be started on Protonix and will be discharged today. PHYSICAL EXAMINATION: GENERAL: The patient is alert and oriented x3, not in any acute distress. Well developed, well nourished. HEENT: Pupils are round and equally reacting to light. EOMI. No scleral icterus. No conjunctival pallor. Normocephalic, atraumatic. No pharyngeal erythema. No thyromegaly. CARDIOVASCULAR: S1 and S2 present. No murmurs, rubs, or gallops. PULMONARY: Chest is clear to auscultation, no wheezing or crackles. ABDOMEN: Soft, nontender, nondistended, normoactive bowel sounds. No palpable organomegaly. MUSCULOSKELETAL: No joint swelling or deformity. EXTREMITIES: No cyanosis, clubbing, or pedal edema. NEUROLOGICAL: Gross neurological examination did not reveal any focal deficits. SKIN: No rashes. His of my [facility] for further details of hospitalization course and other medical problems that were addressed Patient Condition at Discharge: Stable Plan - Discharge Summary Discharge Rx Participant: No New Discharge Prescriptions: New Pantoprazole Sodium [Protonix] 40 mg PO AC-BRKFST #15 tablet. Continue Sertraline HCl [Zoloft] 25 mg PO DAILY Discontinued Omeprazole [PriLOSEC] 40 mg PO DAILY Discharge Medication List Sertraline HCl [Zoloft] 25 mg PO DAILY 06/17/16 [History] Pantoprazole Sodium [Protonix] 40 mg PO AC-BRKFST #15 tablet. 09/05/19 [Rx] Follow up Appointment(s)/Referral(s): Iker Mares MD [Primary Care Provider] - 09/12/19 1:00 pm Activity/Diet/Wound Care/Special Instructions: Scheduled for gallbladder surgery on Sunday You will receive a call from the hospital with your arrival time Follow a low-fat diet [id number] Tylenol as needed for pain Discharge Disposition: HOME SELF-CARE
== END 2019-09-05 15:02 | disposition home or self-care (01) ==
LOC: EC 22:10 → 1SOBS 09-04 01:21
PROVIDERS: ADMIT Internal Medicine; ATTEND Internal Medicine
DX: K82.8 Other specified diseases of gallbladder (principal); K56.7 Ileus, unspecified; K21.9 Gastro-esophageal reflux disease without esophagitis; R13.19 Other dysphagia; F41.9 Anxiety disorder, unspecified; R80.9 Proteinuria, unspecified; E66.9 Obesity, unspecified; Z68.35 Body mass index [BMI] 35.0-35.9, adult; Z03.818 Encounter for observation for suspected exposure to other biological agents ruled out; Z90.710 Acquired absence of both cervix and uterus; Z79.899 Other long term (current) drug therapy; Z88.2 Allergy status to sulfonamides; Z87.898 Personal history of other specified conditions; Z98.890 Other specified postprocedural states; Z98.84 Bariatric surgery status; Z80.0 Family history of malignant neoplasm of digestive organs
CPT/HCPCS: 96375 ×2; 96376 ×3; 96361 ×2; 96374; 99285; 36415; 80053; 82150; 83605 ×2; 83690; 83735; 85025; 85610; 85730; 81003; 76830; 74174; 78227; G0378 ×2; U0003; A9537; J2270 ×3; J2405 ×2; J2805; J1885; C9113 ×2; Q9967

== ENCOUNTER → 2019-09-08 | Day surgery (SDC) | payer BC ==
[~2019-09-08] MED LIST: ACETAMINOPHEN TAB 500 MG TAB PO ONE; DEXAMETHASONE SOD PHOSPHATE 10 MG/ML 1 ML VIAL IV ONE; GLYCOPYRROLATE 0.2 MG/ML 2 ML VIAL ONE; HEPARIN SODIUM,PORCINE 5,000 UNIT/ML 1 ML VIAL SQ ONE; HYDROmorphone 0.5 MG/0.5 ML SYRINGE IVP PRN; KETOROLAC 30 MG/ML 1 ML VIAL ONE; LACTATED RINGERS 1,000 ML IV ONE; LACTATED RINGERS 1,000 ML IV SCH; LIDOCAINE 1% (10MG/ML) FOR IV START INTRADERMA PRN; LIDOCAINE 1% (10MG/ML) FOR IV START SQ ONE; LIDOCAINE 1% INJ 10MG/ML (20 ML MDV) ONE; LIDOCAINE 1%/EPI 1:200,000 MPF 10 ML VIAL SQ ONE; MIDAZOLAM 2 MG/2 ML VIAL ONE; NEOSTIGMINE 1 MG/ML 10 ML VIAL ONE; ONDANSETRON 4 MG/2 ML VIAL IVP ONE; PROPOFOL 10 MG/ML 20 ML VIAL IV ONE; ROCURONIUM BROMIDE 10 MG/ML 5 ML VIAL IV ONE; SCOPOLAMINE 1.5MG/72HR PATCH TRANSDERM ONE; SUCCINYLCHOLINE CHLORIDE 100 MG/5 ML SYR IV ONE; ePHEDrine SULFATE/0.9% NACL/PF 50 MG/5 ML SYRINGE IV ONE; fentaNYL (PF) 50 MCG/ML 2 ML AMP ONE
[2019-09-08 07:55] VITALS: TEMP 97.6
--- NOTE | 2019-09-08 08:53 | P.GSHP ---
History of Present Illness H&P Date: 09/08/19 Chief Complaint: Right upper quadrant pain This a 63-year-old female who's had was run quadrant pain. Her recent HIDA scan shows abnormal ejection fraction consistent with chronic cholecystitis. Patient rents today for laparoscopic cholecystectomy. Past Medical History Past Medical History: GERD/Reflux Additional Past Medical History / Comment(s): ulcers History of Any Multi-Drug Resistant Organisms: None Reported Past Surgical History: Bladder Surgery, Hysterectomy Additional Past Surgical History / Comment(s): lap band, bladder lift Past Anesthesia/Blood Transfusion Reactions: No Reported Reaction Past Psychological History: Anxiety Smoking Status: Never smoker Past Alcohol Use History: None Reported Past Drug Use History: None Reported - Past Family History Father Additional Family Medical History / Comment(s): pancreatic CA Mother Family Medical History: No Reported History Medications and Allergies Home Medications Medication Instructions Recorded Confirmed Type Sertraline HCl [Zoloft] 25 mg PO DAILY 06/17/16 09/04/19 History Pantoprazole Sodium [Protonix] 40 mg PO NURIS-VANESSA #15 tablet. 09/05/19 Rx Allergies Allergy/AdvReac Type Severity Reaction Status Date / Time sulfamethoxazole Allergy Unknown Verified 09/08/19 07:45 [From Bactrim] trimethoprim [From Bactrim] Allergy Unknown Verified 09/08/19 07:45 Surgical - Exam Vital Signs Temp Pulse Resp BP Pulse Ox 97.6 F 79 20 109/51 96 09/08/19 07:53 09/08/19 07:53 09/08/19 07:53 09/08/19 07:53 09/08/19 07:53 - General well developed, well nourished, no distress - Eyes PERRL - ENT normal pinna - Neck no masses - Respiratory normal expansion - Cardiovascular Rhythm: regular - Abdomen Abdomen: soft, non tender Assessment and Plan Assessment: Right quadrant pain Chronic cholecystitis We'll perform laparoscopic cholecystectomy
--- NOTE | 2019-09-08 10:09 | P.OP ---
Date of Procedure: 09/08/19 Preoperative Diagnosis: Chronic cholecystitis Postoperative Diagnosis: Chronic cholecystitis Procedure(s) Performed: Laparoscopic cholecystectomy Anesthesia: SYLVIA Surgeon: Adelfo Aguillon Estimated Blood Loss (ml): 5 Pathology: other (Gallbladder) Condition: stable Disposition: PACU Description of Procedure: The patient was placed on the operating table. The patient received a general endotracheal tube anesthesia. The patients abdomen was prepped and draped in the usual sterile fashion. Through an infraumbilical stab incision, the fascia of the anterior abdominal wall was grasped with a pair of Kochers and then the Veress needle was placed in the peritoneal cavity. Position of the Veress needle was confirmed with positive drop test. The abdomen was then insufflated. After adequate insufflation, the 10 mm trocar was placed in the peritoneal cavity. Following this the laparoscope was placed in the peritoneal cavity. The patient was placed in the head-up, right side up position and then a 5 mm trocar was placed in the right lateral and right subcostal position under direct visualization. A 8 mm trocar was placed in the epigastric position. The gallbladder was grasped in the fundus and infundibulum. Traction on the gallbladder was placed in the lateral and the cephalad positions. The triangle of Calot was visualized.. The cystic duct was bluntly dissected until the union of the cystic duct and common bile duct was seen. A critical view of safety was achieved. The cystic duct was then divided and sealed with the Harmonic scissors. A PDS Endoloop was then placed throughout the cystic duct stump. The cystic artery divided and sealed with the Harmonic scissors. The gallbladder was then removed from the liver bed using Harmonic scissors. The gallbladder was then extracted through the epigastric port site. Operative field was checked for any bleeding spots and Harmonic scissors was used to coagulate the liver bed. The abdomen was irrigated. The trocars were removed. The skin was closed using interrupted 3-0 Vicryl suture. Dermabond dressing were applied. The patient tolerated the procedure well.
[2019-09-08 11:18] VITALS: RESP 16
[2019-09-08 11:49] VITALS: BP 97/63; PULSE 66
== END ==
LOC: OR 07:20
PROVIDERS: ATTEND Surgery
DX: K81.1 Chronic cholecystitis (principal); K82.8 Other specified diseases of gallbladder; K21.9 Gastro-esophageal reflux disease without esophagitis; F41.9 Anxiety disorder, unspecified; Z79.899 Other long term (current) drug therapy; Z88.2 Allergy status to sulfonamides; Z98.84 Bariatric surgery status; Z90.710 Acquired absence of both cervix and uterus; Z80.0 Family history of malignant neoplasm of digestive organs
CPT/HCPCS: 88304; 47562; J2250; J1644; J1100; J2710; J0690; J2405; J2001; J3010; J1885; J0330; J2704

== ENCOUNTER → 2019-09-22 | Outpatient (CLI) | payer BC ==
[2019-09-22 14:56] VITALS: BP 162/87; PULSE 96; RESP 16; TEMP 98.3; BMI 35.2
--- NOTE | 2019-10-02 13:03 | P.HPBAR ---
Bariatric H&P - History & Physicial H&P Date: 09/22/19 History & Physicial: Visit/CC: band adj Patient initial contact: Initial weight: 90.265 kg Initial weight in pounds: 199.00 Height: 5 ft 3 in Initial BMI: 35.2 Last weight: Current weight: 90.265 kg Current weight in pounds: 199.00 Current BMI: 35.2 [place] body weight (based on NIH guidelines): 52.163 kg Excess body weight loss: 0.0% The patient is a 63 year-old F who presents for Bariatric Assessment.patient presents today for lap band adjustment. She currently is hungry and is requesting a fill Past Medical History Past Medical History: GERD/Reflux Additional Past Medical History / Comment(s): ulcers History of Any Multi-Drug Resistant Organisms: None Reported Past Surgical History: Bladder Surgery, Cholecystectomy, Hysterectomy Additional Past Surgical History / Comment(s): lap band, bladder lift Past Anesthesia/Blood Transfusion Reactions: No Reported Reaction Past Psychological History: Anxiety Smoking Status: Never smoker Past Alcohol Use History: None Reported Past Drug Use History: None Reported - Past Family History Father Additional Family Medical History / Comment(s): pancreatic CA Mother Family Medical History: No Reported History Surgical - Exam Vital Signs Temp Pulse Resp BP 98.3 F 96 16 162/87 09/22/19 14:52 09/22/19 14:52 09/22/19 14:52 09/22/19 14:52 - General well developed, well nourished - Eyes PERRL - ENT normal pinna - Neck no masses - Respiratory normal expansion - Abdomen Abdomen: soft, non tender Bariatric Assessment & Plan Plan: patient's lap band was adjusted. She had 0.5 cc added to the band. She'll follow up in 4 weeks. Bariatric Checklist Checklist: Plan: Checklist: EGD: 1. Hiatal hernia: 2. H. Pylori: HgbA1c: Vitamin D: Smoking: Never smoker Primary care physician referral: Psychiatry clearance: Cardiology clearance: Sleep study: Diet journal: VTE risk score: VTE risk level: Rehab needs at discharge:
== END | disposition home or self-care (01) ==
LOC: BARWHC3 14:16
PROVIDERS: ATTEND Surgery
DX: Z46.51 Encounter for fitting and adjustment of gastric lap band (principal)
CPT/HCPCS: 99212

== ENCOUNTER → 2019-10-06 | Outpatient (CLI) | payer BC ==
[2019-10-06 13:16] VITALS: BP 140/95; PULSE 91; RESP 16; TEMP 98.3
--- NOTE | 2019-10-06 13:23 | P.HPBAR ---
Bariatric H&P - History & Physicial H&P Date: 10/06/19 History & Physicial: Visit/CC: band f/u Patient initial contact: Initial weight: 90.265 kg Initial weight in pounds: 199.00 Height: Initial BMI: Last weight: Current weight: Current weight in pounds: Current BMI: [place] body weight (based on NIH guidelines): Excess body weight loss: The patient is a 63 year-old F who presents for Bariatric Assessment. Patient rents today for lab band all. She is requesting a fill. Past Medical History Past Medical History: GERD/Reflux Additional Past Medical History / Comment(s): ulcers History of Any Multi-Drug Resistant Organisms: None Reported Past Surgical History: Bladder Surgery, Cholecystectomy, Hysterectomy Additional Past Surgical History / Comment(s): lap band, bladder lift Past Anesthesia/Blood Transfusion Reactions: No Reported Reaction Past Psychological History: Anxiety Smoking Status: Never smoker Past Alcohol Use History: None Reported Past Drug Use History: None Reported - Past Family History Father Additional Family Medical History / Comment(s): pancreatic CA Mother Family Medical History: No Reported History Surgical - Exam Vital Signs Temp Pulse Resp BP 98.3 F 91 16 140/95 10/06/19 13:13 10/06/19 13:13 10/06/19 13:13 10/06/19 13:13 - General well developed, well nourished, no distress - Abdomen Abdomen: soft, non tender Bariatric Assessment & Plan Plan: Patient LAP-BAND was just. She had 0.5 mL added to her band. She currently has 1 mL in the band. She'll follow-up in 4 weeks. Bariatric Checklist Checklist: Plan: Checklist: EGD: 1. Hiatal hernia: 2. H. Pylori: HgbA1c: Vitamin D: Smoking: Never smoker Primary care physician referral: Psychiatry clearance: Cardiology clearance: Sleep study: Diet journal: VTE risk score: VTE risk level: Rehab needs at discharge:
[2019-10-06 13:31] VITALS: BMI 39.9
== END | disposition home or self-care (01) ==
LOC: BARWHC3 12:49
PROVIDERS: ATTEND Surgery
DX: Z46.51 Encounter for fitting and adjustment of gastric lap band (principal); Z90.49 Acquired absence of other specified parts of digestive tract; Z90.710 Acquired absence of both cervix and uterus
CPT/HCPCS: 99212

== ENCOUNTER → 2019-11-05 | Outpatient (CLI) | payer BC ==
--- NOTE | 2019-11-10 11:23 | MM ---
Reason for exam: screening (asymptomatic). Last mammogram was performed 1 year and 1 month ago. History: Patient is postmenopausal. Physical Findings: A clinical breast exam by your physician is recommended on an annual basis and results should be correlated with mammographic findings. MG Screening Mammo w CAD Bilateral CC and MLO view(s) were taken. Prior study comparison: October 09, 2018, bilateral MG screening mammo w CAD. May 30, 2017, bilateral MG screening mammo w CAD. There are scattered fibroglandular densities. Benign appearing bilateral calcifications. No significant changes when compared with prior studies. ASSESSMENT: Benign, BI-RAD 2 RECOMMENDATION: Routine screening mammogram of both breasts in 1 year.
== END | disposition home or self-care (01) ==
LOC: RADMAMWWP 09:31
PROVIDERS: ATTEND Obstetrics & Gynecology
DX: Z12.31 Encounter for screening mammogram for malignant neoplasm of breast (principal)
CPT/HCPCS: 77067

== ENCOUNTER → 2019-11-10 | Outpatient (CLI) | payer BC ==
--- NOTE | 2019-11-10 13:50 | P.HPBAR ---
Bariatric H&P - History & Physicial H&P Date: 11/10/19 History & Physicial: Visit/CC: Patient initial contact: Initial weight: 90.265 kg Initial weight in pounds: Height: Initial BMI: Last weight: 198 Current weight: 198 Current weight in pounds: Current BMI: [place] body weight (based on NIH guidelines): Excess body weight loss: The patient is a 64 year-old F who presents for Bariatric Assessment. Patient presents today for lab band follow. She is requesting a fill. Her weight has remained stable at 198 pounds. Past Medical History Past Medical History: GERD/Reflux Additional Past Medical History / Comment(s): ulcers History of Any Multi-Drug Resistant Organisms: None Reported Past Surgical History: Bladder Surgery, Cholecystectomy, Hysterectomy Additional Past Surgical History / Comment(s): lap band, bladder lift Past Anesthesia/Blood Transfusion Reactions: No Reported Reaction Past Psychological History: Anxiety Smoking Status: Unknown if ever smoked Past Alcohol Use History: None Reported Past Drug Use History: None Reported - Past Family History Father Additional Family Medical History / Comment(s): pancreatic CA Mother Family Medical History: No Reported History Surgical - Exam - General well developed, well nourished, no distress - Eyes PERRL - ENT normal pinna - Neck no masses - Respiratory normal expansion - Cardiovascular Rhythm: regular - Abdomen Abdomen: soft, non tender Bariatric Assessment & Plan Plan: Patient LAP-BAND was adjusted. 2. Malfunctioning LAP-BAND port. Patient had 3 mL flushed into the LAP-BAND port hormone 1 mL was withdrawn. Patient will make a decision whether she wishes to have her LAP-BAND port replaced or convert to sleeve gastrectomy. Bariatric Checklist Checklist: Plan: Checklist: EGD: 1. Hiatal hernia: 2. H. Pylori: HgbA1c: Vitamin D: Smoking: Never smoker Primary care physician referral: Psychiatry clearance: Cardiology clearance: Sleep study: Diet journal: VTE risk score: VTE risk level: Rehab needs at discharge:
[2019-11-10 15:35] LABS: Basophils # (A) 0.1 k/uL (0-0.2); Basophils % (A) 1 %; Eosinophils # (A) 0.1 k/uL (0-0.7); Eosinophils % (A) 3 %; HCT 41.6 % (34.0-46.0); HGB 13.4 gm/dL (11.4-16.0); Lymphocytes # (A) 1.7 k/uL (1.0-4.8); Lymphocytes % (A) 32 %; MCH 28.5 pg (25.0-35.0); MCHC 32.3 g/dL (31.0-37.0); MCV 88.3 fL (80.0-100.0); Mean Platelet Volume 8.6; Monocytes # (A) 0.4 k/uL (0-1.0); Monocytes % (A) 8 %; Neutrophils # (A) 2.8 k/uL (1.3-7.7); Neutrophils % (A) 53 %; Platelet Count 250 k/uL (150-450); RBC 4.71 m/uL (3.80-5.40); WBC 5.3 k/uL (3.8-10.6)
[2019-11-10 15:39] LABS: ALT 17 U/L (4-34); AST 31 U/L (14-36); African American GFR (CKD) >90 (>60 ml/min/1.73 sqM); Albumin 4.2 g/dL (3.5-5.0); Alkaline Phosphatase 82 U/L (38-126); Anion Gap 8 mmol/L; Blood Urea Nitrogen 10 mg/dL (7-17); Calcium 9.2 mg/dL (8.4-10.2); Carbon Dioxide 25 mmol/L (22-30); Chloride 105 mmol/L (98-107); Glucose 87 mg/dL (74-99); Non-African American GFR(CKD) >90 (>60 ml/min/1.73 sqM); Potassium 4.5 mmol/L (3.5-5.1); Sodium 138 mmol/L (137-145); Total Bilirubin 0.7 mg/dL (0.2-1.3); Total Protein 6.6 g/dL (6.3-8.2)
== END | disposition home or self-care (01) ==
LOC: LABPAT 13:32
PROVIDERS: ATTEND Surgery
DX: Z01.818 Encounter for other preprocedural examination (principal)
CPT/HCPCS: 36415; 80053; 85025; 93005

== ENCOUNTER → 2019-11-10 | Outpatient (CLI) | payer BC ==
[2019-11-10 13:14] VITALS: BP 149/80; PULSE 88; RESP 16; TEMP 98.2; BMI 35.2
--- NOTE | 2019-12-15 14:02 | P.HPBAR ---
Bariatric H&P - History & Physicial H&P Date: 11/10/19 History & Physicial: Visit/CC: band adj Patient initial contact: Initial weight: 90.265 kg Initial weight in pounds: 199.00 Height: 5 ft 3 in Initial BMI: 35.2 Last weight: Current weight: 90.265 kg Current weight in pounds: 199.00 Current BMI: 35.2 [place] body weight (based on NIH guidelines): 52.163 kg Excess body weight loss: 0.0% The patient is a 64 year-old F who presents for Bariatric Assessment. Patient rents today for lab band follow up. She has Hunger. Past Medical History Past Medical History: GERD/Reflux Additional Past Medical History / Comment(s): ulcers History of Any Multi-Drug Resistant Organisms: None Reported Past Surgical History: Bladder Surgery, Cholecystectomy, Hysterectomy Additional Past Surgical History / Comment(s): lap band, bladder lift Past Anesthesia/Blood Transfusion Reactions: No Reported Reaction Past Psychological History: Anxiety Smoking Status: Unknown if ever smoked Past Alcohol Use History: None Reported Past Drug Use History: None Reported - Past Family History Father Additional Family Medical History / Comment(s): pancreatic CA Mother Family Medical History: No Reported History Surgical - Exam Vital Signs Temp Pulse Resp BP 98.2 F 88 16 149/80 11/10/19 13:10 11/10/19 13:10 11/10/19 13:10 11/10/19 13:10 - General well developed, well nourished, no distress - Eyes PERRL - ENT normal pinna - Neck no masses - Respiratory normal expansion - Cardiovascular Rhythm: regular - Abdomen Abdomen: soft, non tender Bariatric Assessment & Plan Plan: Patient's lap band was adjusted. She was found have no fluid in the band adjustment of LAP-BAND port leak. Patient was scheduled for LAP-BAND port replacement. Bariatric Checklist Checklist: Plan: Checklist: EGD: 1. Hiatal hernia: 2. H. Pylori: HgbA1c: Vitamin D: Smoking: Never smoker Primary care physician referral: Psychiatry clearance: Cardiology clearance: Sleep study: Diet journal: VTE risk score: VTE risk level: Rehab needs at discharge:
== END | disposition home or self-care (01) ==
LOC: BARWHC3 12:47
PROVIDERS: ATTEND Surgery
DX: Z46.51 Encounter for fitting and adjustment of gastric lap band (principal)
CPT/HCPCS: 99212

== ENCOUNTER 2019-11-19 09:58 | Day surgery (SDC) | payer BC ==
[2019-11-13 14:31] VITALS: BMI 34.5
[~2019-11-19 09:58] MED LIST changes: -ACETAMINOPHEN TAB 500 MG TAB PO ONE; -DEXAMETHASONE SOD PHOSPHATE 10 MG/ML 1 ML VIAL IV ONE; -GLYCOPYRROLATE 0.2 MG/ML 2 ML VIAL ONE; -HEPARIN SODIUM,PORCINE 5,000 UNIT/ML 1 ML VIAL SQ ONE; -KETOROLAC 30 MG/ML 1 ML VIAL ONE; -LACTATED RINGERS 1,000 ML IV ONE; -LIDOCAINE 1% (10MG/ML) FOR IV START INTRADERMA PRN; -LIDOCAINE 1% (10MG/ML) FOR IV START SQ ONE; -LIDOCAINE 1% INJ 10MG/ML (20 ML MDV) ONE; -LIDOCAINE 1%/EPI 1:200,000 MPF 10 ML VIAL SQ ONE; -MIDAZOLAM 2 MG/2 ML VIAL ONE; -NEOSTIGMINE 1 MG/ML 10 ML VIAL ONE; -ONDANSETRON 4 MG/2 ML VIAL IVP ONE; -PROPOFOL 10 MG/ML 20 ML VIAL IV ONE; -ROCURONIUM BROMIDE 10 MG/ML 5 ML VIAL IV ONE; -SCOPOLAMINE 1.5MG/72HR PATCH TRANSDERM ONE; -SUCCINYLCHOLINE CHLORIDE 100 MG/5 ML SYR IV ONE; -ePHEDrine SULFATE/0.9% NACL/PF 50 MG/5 ML SYRINGE IV ONE; -fentaNYL (PF) 50 MCG/ML 2 ML AMP ONE
[2019-11-19 10:38] VITALS: TEMP 97.4
[2019-11-19] MEDS ORDERED: LIDOCAINE 1% (10MG/ML) FOR IV START INTRADERMA ONE (10:50)
[2019-11-19] MEDS ORDERED: ONDANSETRON 4 MG/2 ML VIAL ONE (11:02)
[2019-11-19] MEDS ORDERED: HEPARIN SODIUM,PORCINE 5,000 UNIT/ML 1 ML VIAL ONE (11:02)
[2019-11-19] MEDS ORDERED: DEXAMETHASONE SOD PHOSPHATE 10 MG/ML 1 ML VIAL IV ONE (11:04)
[2019-11-19] MEDS ORDERED: ONDANSETRON 4 MG/2 ML VIAL IVP ONE (11:05)
--- NOTE | 2019-11-19 11:23 | P.GSHP ---
History of Present Illness H&P Date: 11/19/19 Chief Complaint: LAP-BAND port malfunction This is a 63-year-old female who presents today for laparoscopic removal and replacement of LAP-BAND port. Patient has developed a fluid leak at her LAP- BAND port. Past Medical History Past Medical History: GERD/Reflux Additional Past Medical History / Comment(s): Hx stomach ulcers . Lap band . History of Any Multi-Drug Resistant Organisms: None Reported Past Surgical History: Bariatric Surgery, Bladder Surgery, Cholecystectomy, Hysterectomy Additional Past Surgical History / Comment(s): lap band (01/03/2002) and replaced x1., cystocele/rectocele with bladder suspension (2011) , partial hysterectomy Past Anesthesia/Blood Transfusion Reactions: No Reported Reaction Past Psychological History: Anxiety Smoking Status: Never smoker, Unknown if ever smoked Past Alcohol Use History: None Reported Additional Past Alcohol Use History / Comment(s): only smoked 6 months as teenager. Past Drug Use History: None Reported - Past Family History Father Additional Family Medical History / Comment(s): pancreatic CA Mother Family Medical History: No Reported History Medications and Allergies Home Medications Medication Instructions Recorded Confirmed Type Sertraline HCl [Zoloft] 25 mg PO DAILY 06/17/16 11/19/19 History Cholecalciferol [Vitamin D3 (25 2,000 unit PO DAILY 11/13/19 11/19/19 History Mcg = 1000 Iu)] Ibuprofen [Motrin Ib] 600 mg PO DIRECTED PRN 11/13/19 11/19/19 History Omeprazole 40 mg PO DAILY 11/13/19 11/19/19 History Vitamin C/Biotin [Hair, Skin and 1 tab PO DAILY 11/13/19 11/19/19 History Nails] Allergies Allergy/AdvReac Type Severity Reaction Status Date / Time sulfamethoxazole Allergy Rash/Hives Verified 11/19/19 10:42 [From Bactrim] trimethoprim [From Bactrim] Allergy Rash/Hives Verified 11/19/19 10:42 Surgical - Exam Vital Signs Temp Pulse Resp BP Pulse Ox 97.4 F L 82 16 131/83 96 11/19/19 10:37 11/19/19 10:37 11/19/19 10:37 11/19/19 10:37 11/19/19 10:37 - General well developed, well nourished, no distress - Eyes PERRL - ENT normal pinna - Neck no masses - Respiratory normal expansion - Cardiovascular Rhythm: regular - Abdomen Abdomen: soft, non tender Assessment and Plan Assessment: LAP-BAND port function. We'll perform laparoscopic removal and placement of LAP-BAND port
[2019-11-19] MEDS ORDERED: SUCCINYLCHOLINE CHLORIDE 100 MG/5 ML SYR IV ONE (11:43)
[2019-11-19] MEDS ORDERED: PROPOFOL 10 MG/ML 20 ML VIAL IV ONE (11:43)
[2019-11-19] MEDS ORDERED: NEOSTIGMINE 1 MG/ML 10 ML VIAL ONE (11:43)
[2019-11-19] MEDS ORDERED: ROCURONIUM BROMIDE 10 MG/ML 5 ML VIAL IV ONE (11:43)
[2019-11-19] MEDS ORDERED: LIDOCAINE 1% INJ 10MG/ML (20 ML MDV) ONE (11:43)
[2019-11-19] MEDS ORDERED: fentaNYL (PF) 50 MCG/ML 2 ML AMP ONE (11:43)
[2019-11-19] MEDS ORDERED: KETOROLAC 30 MG/ML 1 ML VIAL ONE (11:43)
[2019-11-19] MEDS ORDERED: GLYCOPYRROLATE 0.2 MG/ML 2 ML VIAL ONE (11:43)
[2019-11-19] MEDS ORDERED: MIDAZOLAM 2 MG/2 ML VIAL ONE (11:43)
[2019-11-19] MEDS ORDERED: BUPIVACAINE (PF) 0.5% 30 ML VIAL SQ ONE (11:57)
--- NOTE | 2019-11-19 13:27 | P.OP ---
Date of Procedure: 11/19/19 Preoperative Diagnosis: LAP-BAND port malfunction Postoperative Diagnosis: LAP-BAND port malfunction Procedure(s) Performed: Laparoscopic removal and replacement of LAP-BAND port Anesthesia: SYLVIA Surgeon: Adelfo Aguillon Estimated Blood Loss (ml): 5 Pathology: none sent Condition: stable Disposition: PACU Description of Procedure: The patient was placed on the operating table in the supine position. She received general anesthesia. Her abdomen was prepped and draped usual fashion. The skin was incised at the LAP-BAND port using blunt and sharp dissection with cautery LAP-BAND port was dissected free. There is complete disconnect of the connecting tube from the port. At this point a 5 mm optical trocar is placed. Cavity. After adequate insufflation the laparoscope placed in the pleural cavity. A 10 other trochars placed in the right epigastric area. The LAP-BAND tubes and brought up to the 10 mm trocar site. The trocar was withdrawn. The new LAP-BAND port was connected to the PEG tube and then the port was connected to the fascia using 0 Nurolon suture. The LAP-BAND port was flushed there was no evidence of any leak or malfunction. 1 mL was placed in the LAP-BAND. The skin was then closed interrupted 3-0 Monocryl suture. Dermabond was applied. Patient top she will was sent to recovery room in stable condition.
[2019-11-19 13:55] VITALS: BP 115/68; PULSE 51; RESP 15
== END 2019-11-19 14:08 | disposition home or self-care (01) ==
LOC: OR 09:58
PROVIDERS: ATTEND Surgery
DX: K95.09 Other complications of gastric band procedure (principal); E66.01 Morbid (severe) obesity due to excess calories; F32.9 Major depressive disorder, single episode, unspecified; K21.9 Gastro-esophageal reflux disease without esophagitis; F41.9 Anxiety disorder, unspecified; Z79.1 Long term (current) use of non-steroidal anti-inflammatories (NSAID); Z88.2 Allergy status to sulfonamides; Z79.899 Other long term (current) drug therapy; Z90.49 Acquired absence of other specified parts of digestive tract; Z90.710 Acquired absence of both cervix and uterus; Z98.890 Other specified postprocedural states; Z87.11 Personal history of peptic ulcer disease; Z98.84 Bariatric surgery status; Z80.0 Family history of malignant neoplasm of digestive organs; Z68.35 Body mass index [BMI] 35.0-35.9, adult
CPT/HCPCS: 43659; C1751; J2250; J1100; J2710; J0690; J2405; J2001; J3010; J1885; J0330; J2704

== ENCOUNTER → 2019-12-01 | Outpatient (CLI) | payer BC ==
[2019-12-01 13:51] VITALS: BP 132/84; PULSE 96; TEMP 98.5
--- NOTE | 2019-12-01 14:03 | P.HPBAR ---
Bariatric H&P - History & Physicial H&P Date: 12/01/19 History & Physicial: Visit/CC: band follow up Patient initial contact: Initial weight: 90.265 kg Initial weight in pounds: 199.00 Height: 5 ft 3 in Initial BMI: Last weight: Current weight: 90.265 kg Current weight in pounds: Current BMI: [place] body weight (based on NIH guidelines): Excess body weight loss: The patient is a 64 year-old F who presents for Bariatric Assessment. She presents today for follow-up. She has had her LAP-BAND port exchange. Sleep. Past Medical History Past Medical History: GERD/Reflux Additional Past Medical History / Comment(s): Hx stomach ulcers . Lap band . History of Any Multi-Drug Resistant Organisms: None Reported Past Surgical History: Bariatric Surgery, Bladder Surgery, Cholecystectomy, Hysterectomy Additional Past Surgical History / Comment(s): lap band (01/03/2002) and replaced x1., cystocele/rectocele with bladder suspension (2011) , partial hysterectomy Past Anesthesia/Blood Transfusion Reactions: No Reported Reaction Past Psychological History: Anxiety Smoking Status: Never smoker, Unknown if ever smoked Past Alcohol Use History: None Reported Additional Past Alcohol Use History / Comment(s): only smoked 6 months as teenager. Past Drug Use History: None Reported - Past Family History Father Additional Family Medical History / Comment(s): pancreatic CA Mother Family Medical History: No Reported History Surgical - Exam Vital Signs Temp Pulse BP 98.5 F 96 132/84 12/01/19 13:46 12/01/19 13:46 12/01/19 13:46 - Abdomen Abdomen soft. Incision sites clean and intact. Bariatric Assessment & Plan Plan: Patient will have her Helga adjusted next visit. She'll follow-up in a week. Bariatric Checklist Checklist: Plan: Checklist: EGD: 1. Hiatal hernia: 2. H. Pylori: HgbA1c: Vitamin D: Smoking: Never smoker Primary care physician referral: Psychiatry clearance: Cardiology clearance: Sleep study: Diet journal: VTE risk score: VTE risk level: Rehab needs at discharge:
== END | disposition home or self-care (01) ==
LOC: BARWHC3 13:30
PROVIDERS: ATTEND Surgery
DX: Z46.51 Encounter for fitting and adjustment of gastric lap band (principal); Z98.84 Bariatric surgery status; Z90.49 Acquired absence of other specified parts of digestive tract; Z90.710 Acquired absence of both cervix and uterus
CPT/HCPCS: 99212

== ENCOUNTER → 2019-12-15 | Outpatient (CLI) | payer BC ==
[2019-12-15 13:34] VITALS: BP 130/90; PULSE 61; TEMP 98.7; BMI 31.3
--- NOTE | 2019-12-15 13:41 | P.HPBAR ---
Bariatric H&P - History & Physicial H&P Date: 12/15/19 History & Physicial: Visit/CC: lap band follow up Patient initial contact: Initial weight: 90.265 kg Initial weight in pounds: 199.00 Height: 5 ft 7 in Initial BMI: 31.1 Last weight: Current weight: 90.718 kg Current weight in pounds: 200.00 Current BMI: 31.3 [place] body weight (based on NIH guidelines): 61.235 kg Excess body weight loss: The patient is a 64 year-old F who presents for Bariatric Assessment. She will stay for lap band follow up. She has quite a hunger. Her band is empty. Her port was recently placed. Past Medical History Past Medical History: GERD/Reflux Additional Past Medical History / Comment(s): Hx stomach ulcers . Lap band . History of Any Multi-Drug Resistant Organisms: None Reported Past Surgical History: Bariatric Surgery, Bladder Surgery, Cholecystectomy, Hysterectomy Additional Past Surgical History / Comment(s): lap band (01/03/2002) and replaced x1., cystocele/rectocele with bladder suspension (2011) , partial hysterectomy Past Anesthesia/Blood Transfusion Reactions: No Reported Reaction Past Psychological History: Anxiety Smoking Status: Never smoker, Unknown if ever smoked Past Alcohol Use History: None Reported Additional Past Alcohol Use History / Comment(s): only smoked 6 months as teenager. Past Drug Use History: None Reported - Past Family History Father Additional Family Medical History / Comment(s): pancreatic CA Mother Family Medical History: No Reported History Surgical - Exam Vital Signs Temp Pulse BP 98.7 F 61 130/90 12/15/19 13:32 12/15/19 13:32 12/15/19 13:32 - General well developed, well nourished, no distress - Eyes PERRL - ENT normal pinna - Neck no masses - Respiratory normal expansion - Cardiovascular Rhythm: regular - Abdomen Abdomen: soft, non tender Bariatric Assessment & Plan Plan: Patient LAP-BAND was adjusted. She had 0.5 mL added to her band. She was able require without difficulty. She'll follow-up in 4 weeks. Bariatric Checklist Checklist: Plan: Checklist: EGD: 1. Hiatal hernia: 2. H. Pylori: HgbA1c: Vitamin D: Smoking: Never smoker Primary care physician referral: Psychiatry clearance: Cardiology clearance: Sleep study: Diet journal: VTE risk score: VTE risk level: Rehab needs at discharge:
== END | disposition home or self-care (01) ==
LOC: BARWHC3 12:44
PROVIDERS: ATTEND Surgery
DX: Z46.51 Encounter for fitting and adjustment of gastric lap band (principal); Z98.84 Bariatric surgery status; Z90.49 Acquired absence of other specified parts of digestive tract; Z90.710 Acquired absence of both cervix and uterus; E66.01 Morbid (severe) obesity due to excess calories; Z68.31 Body mass index [BMI] 31.0-31.9, adult
CPT/HCPCS: 99212

== ENCOUNTER → 2021-01-11 | Outpatient (CLI) | payer BC ==
--- NOTE | 2021-01-12 13:32 | MM ---
Reason for exam: screening (asymptomatic). Last mammogram was performed 1 year and 2 months ago. History: Patient is postmenopausal. Physical Findings: A clinical breast exam by your physician is recommended on an annual basis and results should be correlated with mammographic findings. MG Screening Mammo w CAD Bilateral CC and MLO view(s) were taken. Prior study comparison: November 05, 2019, bilateral MG screening mammo w CAD. October 09, 2018, bilateral MG screening mammo w CAD. May 30, 2017, bilateral MG screening mammo w CAD. There are scattered fibroglandular densities. No significant changes when compared with prior studies. ASSESSMENT: Benign, BI-RAD 2 RECOMMENDATION: Routine screening mammogram of both breasts in 1 year.
== END | disposition home or self-care (01) ==
LOC: RADMAMWWP 07:21
PROVIDERS: ATTEND Obstetrics & Gynecology
DX: Z12.31 Encounter for screening mammogram for malignant neoplasm of breast (principal); Z78.0 Asymptomatic menopausal state
CPT/HCPCS: 77067

== ENCOUNTER 2021-12-22 08:02 | Day surgery (SDC) | payer BC, MEDICARE ==
[2021-12-20 15:02] VITALS: BMI 35.4
[~2021-12-22 08:02] MED LIST changes: -HYDROmorphone 0.5 MG/0.5 ML SYRINGE IVP PRN
[2021-12-22 08:26] VITALS: TEMP 98.8
[2021-12-22] MEDS ORDERED: LIDOCAINE 2% INJ 20 MG/ML (2 ML VIAL) ONE (08:53)
[2021-12-22] MEDS ORDERED: PROPOFOL 10 MG/ML 20 ML VIAL IV ONE (08:53)
--- NOTE | 2021-12-22 08:55 | P.GSHP ---
History of Present Illness H&P Date: 12/22/21 Chief Complaint: Screening colonoscopy This a 66-year-old female presents today for screening colonoscopy. Patient denies a significant GI complaints. Past Medical History Past Medical History: GERD/Reflux, Osteoarthritis (OA) Additional Past Medical History / Comment(s): Hx bleeding stomach ulcer 28 yrs ago.,(received 5 units blood). ,has Lap band with fluid., current UTI-new levaquin prescription. History of Any Multi-Drug Resistant Organisms: None Reported Past Surgical History: Bariatric Surgery, Bladder Surgery, Cholecystectomy, Hysterectomy Additional Past Surgical History / Comment(s): lap band (01/03/2002) and replaced x1., cystocele/rectocele with bladder suspension (2011) , partial hysterectomy Past Anesthesia/Blood Transfusion Reactions: No Reported Reaction Past Psychological History: Anxiety Smoking Status: Never smoker, Unknown if ever smoked Past Alcohol Use History: None Reported Additional Past Alcohol Use History / Comment(s): smoked 6 months as teenager. Past Drug Use History: None Reported - Past Family History Father Additional Family Medical History / Comment(s): pancreatic CA Mother Family Medical History: No Reported History Medications and Allergies Home Medications Medication Instructions Recorded Confirmed Type Sertraline HCl [Zoloft] 25 mg PO DAILY 06/17/16 12/22/21 History Cholecalciferol [Vitamin D3 (25 2,000 unit PO DAILY 11/13/19 12/22/21 History Mcg = 1000 Iu)] Ibuprofen [Motrin Ib] 600 mg PO DIRECTED PRN 11/13/19 12/22/21 History Omeprazole 40 mg PO DAILY 11/13/19 12/22/21 History Vitamin C/Biotin [Hair, Skin and 1 tab PO DAILY 11/13/19 12/22/21 History Nails] Allergies Allergy/AdvReac Type Severity Reaction Status Date / Time sulfamethoxazole Allergy Rash/Hives Verified 12/22/21 08:24 [From Bactrim] trimethoprim [From Bactrim] Allergy Rash/Hives Verified 12/22/21 08:24 Surgical - Exam Vital Signs Temp Pulse Resp BP Pulse Ox 98.8 F 78 16 132/74 97 12/22/21 08:25 12/22/21 08:25 12/22/21 08:25 12/22/21 08:25 12/22/21 08:25 - General well developed, well nourished, no distress - Eyes PERRL - ENT normal pinna - Neck no masses - Respiratory normal expansion - Cardiovascular Rhythm: regular - Abdomen Abdomen: soft, non tender Assessment and Plan Assessment: We'll perform screening colonoscopy
--- NOTE | 2021-12-22 09:13 | P.OP ---
Date of Procedure: 12/22/21 Preoperative Diagnosis: Screening colonoscopy Postoperative Diagnosis: Diverticulosis Tortuous colon Procedure(s) Performed: Colonoscopy Anesthesia: MAC Surgeon: Adelfo Aguillon Pathology: none sent Condition: stable Disposition: PACU Description of Procedure: The patient's placed on the endoscopy table in the lateral position. She received IV sedation. Digital rectal exam was performed. This revealed no abnormalities. Flexible colonoscope was then placed patient anus and passed throughout the colon. The right colon was not visualized secondary tortuosity valve. Several times made to maneuver the scope in the right colon there was some possible. Scope was withdrawn. The visualized transverse colon appeared normal. In the descending and sigmoid there was scattered diverticulosis. The scope was then brought back the rectum withdrawn for patient.
[2021-12-22 09:34] VITALS: BP 107/68; PULSE 58; RESP 16
== END 2021-12-22 09:51 | disposition home or self-care (01) ==
LOC: ORWHC2ENDO 08:02
PROVIDERS: ATTEND Surgery
DX: Z12.11 Encounter for screening for malignant neoplasm of colon (principal); K57.30 Diverticulosis of large intestine without perforation or abscess without bleeding; K56.2 Volvulus; K21.9 Gastro-esophageal reflux disease without esophagitis; M19.90 Unspecified osteoarthritis, unspecified site; N39.0 Urinary tract infection, site not specified; F41.9 Anxiety disorder, unspecified; Z87.891 Personal history of nicotine dependence; Z98.84 Bariatric surgery status; Z98.890 Other specified postprocedural states; Z90.89 Acquired absence of other organs; Z80.0 Family history of malignant neoplasm of digestive organs; Z79.899 Other long term (current) drug therapy; Z79.891 Long term (current) use of opiate analgesic; Z88.2 Allergy status to sulfonamides; Z88.1 Allergy status to other antibiotic agents
CPT/HCPCS: G0121; J2704; J2001; 45378

== ENCOUNTER → 2022-01-09 | Outpatient (CLI) | payer MEDICARE ==
[2022-01-09 13:47] VITALS: BP 117/88; PULSE 89; TEMP 98.4; BMI 36.1
--- NOTE | 2022-01-09 14:45 | P.HPBAR ---
Bariatric H&P - History & Physicial H&P Date: 01/09/22 History & Physicial: Visit/CC: lap band Patient initial contact: Initial weight: 90.265 kg Initial weight in pounds: 199.00 Height: 5 ft 3 in Initial BMI: 35.2 Last weight: Current weight: 92.533 kg Current weight in pounds: 204.00 Current BMI: 36.1 [place] body weight (based on NIH guidelines): 52.163 kg Excess body weight loss: The patient is a 66 year-old F who presents for Bariatric Assessment.patient resents today for LAP-BAND follow-up. She's requesting a fill of her band. She is gainedweight since her last visit. Past Medical History Past Medical History: GERD/Reflux Additional Past Medical History / Comment(s): Hx stomach ulcers . Lap band . History of Any Multi-Drug Resistant Organisms: None Reported Past Surgical History: Bariatric Surgery, Bladder Surgery, Cholecystectomy, Hysterectomy Additional Past Surgical History / Comment(s): lap band (01/03/2002) and replaced x1., cystocele/rectocele with bladder suspension (2011) , partial hysterectomy Past Anesthesia/Blood Transfusion Reactions: No Reported Reaction Past Psychological History: Anxiety Smoking Status: Never smoker, Unknown if ever smoked Past Alcohol Use History: None Reported Additional Past Alcohol Use History / Comment(s): only smoked 6 months as teenager. Past Drug Use History: None Reported - Past Family History Father Additional Family Medical History / Comment(s): pancreatic CA Mother Family Medical History: No Reported History Surgical - Exam Vital Signs Temp Pulse BP 98.4 F 89 117/88 01/09/22 13:42 01/09/22 13:42 01/09/22 13:42 - General well developed, well nourished, no distress - Eyes PERRL - ENT normal pinna - Neck no masses - Respiratory normal expansion - Abdomen Abdomen: soft, non tender Bariatric Assessment & Plan Plan: patient LAP-BAND was adjusted. She'll 0.5 mL added to the band. She currently is 1 mL total in the band. She'll follow-up in 4 weeks. Bariatric Checklist Checklist: Plan: Checklist: EGD: 1. Hiatal hernia: 2. H. Pylori: HgbA1c: Vitamin D: Smoking: Never smoker Primary care physician referral: Psychiatry clearance: Cardiology clearance: Sleep study: Diet journal: VTE risk score: VTE risk level: Rehab needs at discharge:
== END ==
LOC: BARWHC3 13:06
PROVIDERS: ATTEND Surgery
DX: R63.5 Abnormal weight gain (principal); K21.9 Gastro-esophageal reflux disease without esophagitis; F41.9 Anxiety disorder, unspecified; Z87.891 Personal history of nicotine dependence; Z88.2 Allergy status to sulfonamides; Z88.8 Allergy status to other drugs, medicaments and biological substances; Z68.36 Body mass index [BMI] 36.0-36.9, adult
CPT/HCPCS: 99212

== ENCOUNTER → 2022-03-09 | Outpatient (CLI) | payer MEDICARE ==
--- NOTE | 2022-03-10 08:40 | MM ---
Reason for Exam: Screening (asymptomatic). Last mammogram was performed 1 year(s) and 2 month(s) ago. Patient History: Menarche at age 12. First Full-Term at age 30. Hysterectomy at age 45. Postmenopausal. Risk Values: [place] 5 year model risk: 2.0%. NCI Lifetime model risk: 7.6%. Prior Study Comparison: 10/09/2018 Bilateral Screening Mammogram, [facility]. 11/05/2019 Bilateral Screening Mammogram, [facility]. 01/11/2021 Bilateral Screening Mammogram, [facility]. Tissue Density: There are scattered fibroglandular densities. Findings: Analyzed By CAD. Benign-appearing left axillary lymph nodes redemonstrated. Benign-appearing linear calcifications right breast upper-outer aspect redemonstrated. There is no suspicious group of microcalcifications or new suspicious mass in either breast. Overall Assessment: Benign, BI-RAD 2 Management: Screening Mammogram of both breasts in 1 year. A clinical breast exam by your physician is recommended on an annual basis and results should be correlated with mammographic findings. Electronically signed and approved by: Darell Vasques M.D.
== END | disposition home or self-care (01) ==
LOC: RADMAMWWP 11:28
PROVIDERS: ATTEND Family Medicine
DX: Z12.31 Encounter for screening mammogram for malignant neoplasm of breast (principal); Z78.0 Asymptomatic menopausal state
CPT/HCPCS: 77063; 77067

== ENCOUNTER → 2023-04-09 | Outpatient (CLI) | payer MEDICARE ==
--- NOTE | 2023-04-10 17:18 | MM ---
Reason for Exam: Screening (asymptomatic). Last mammogram was performed 1 year(s) and 1 month(s) ago. Patient History: Menarche at age 12. First Full-Term at age 30. Hysterectomy at age 45. Postmenopausal. Risk Values: [place] 5 year model risk: 2.0%. NCI Lifetime model risk: 7.3%. Prior Study Comparison: 11/05/2019 Bilateral Screening Mammogram, [facility]. 01/11/2021 Bilateral Screening Mammogram, [facility]. 03/09/2022 Bilateral MG 3D screening mammo w/cad, [facility]. Tissue Density: There are scattered fibroglandular densities. Findings: Analyzed By CAD. Pattern appears symmetrical and stable. No significant interval change is evident. Appears to be a linear calcification or foreign body within the right breast. No suspicious groups of microcalcifications, spiculated or lobular masses, architectural distortion or other secondary signs of malignancy are mammographically apparent. Overall Assessment: Benign, BI-RAD 2 Management: Screening Mammogram of both breasts in 1 year. A negative mammogram report should not preclude additional follow up of suspicious palpable abnormalities. Patient should continue monthly self breast exam. A clinical breast exam by your physician is recommended on an annual basis and results should be correlated with mammographic findings. Electronically signed and approved by: Philip Hernandez D.O. Radiologis
== END | disposition home or self-care (01) ==
LOC: RADMAMWWP 12:30
PROVIDERS: ATTEND Family Medicine
DX: Z12.31 Encounter for screening mammogram for malignant neoplasm of breast (principal); Z78.0 Asymptomatic menopausal state
CPT/HCPCS: 77063; 77067

== ENCOUNTER → 2024-04-10 | Outpatient (CLI) | payer MEDICARE ==
--- NOTE | 2024-04-10 13:50 | MM ---
Reason for Exam: Screening (asymptomatic). Last screening mammogram was performed 12 month(s) ago. Patient History: Menarche at age 12. First Full-Term at age 30. Hysterectomy at age 45. Postmenopausal. Risk Values: Cassidy 5 year model risk: 2.1%. NCI Lifetime model risk: 7.0%. Prior Study Comparison: 01/11/2021 Bilateral Screening Mammogram, [facility]. 03/09/2022 Bilateral MG 3D screening mammo w/cad, [facility]. 04/09/2023 Bilateral MG 3D screening mammo w/cad, [facility]. Tissue Density: The breasts are almost entirely fatty. Findings: Analyzed By CAD. Right breast biopsy clip. Right breast: There is no suspicious group of microcalcifications or new suspicious mass. Left breast: There is no suspicious group of microcalcifications or new suspicious mass. Overall Assessment: Benign, BI-RAD 2 Management: Screening Mammogram of both breasts in [address] [facility] will attempt to contact patient to return for supplemental views and ultrasound if indicated. Patient should continue monthly self-breast exams. A clinical breast exam by your physician is recommended on an annual basis. This exam should not preclude additional follow-up of suspicious palpable abnormalities. Note on Cassidy scores and lifetime risk: 1. A Cassidy score greater than 3% is considered moderate risk. If this is the case, consider specialist referral to assess eligibility for a risk reducing agent. 2. If overall lifetime risk for the development of breast cancer is 20% or higher, the patient may qualify for future screening with alternating mammogram and breast MRI. [facility], , 04/10/2024 1:47 PM. Electronically signed and approved by: Jack Puri DO
--- NOTE | 2024-04-14 07:42 | BD ---
EXAMINATION TYPE: Axial Bone Density DATE OF EXAM: 04/10/2024 CLINICAL HISTORY: 68 years old Female. ICD-10 CODE: Z78.0 ASYMPTOMATIC MENOPAUSAL STATE , Additional History: Height: 63 Weight: 211 FRAX RISK QUESTIONS: History of Fracture in Adulthood: yes Secondary Osteoporosis: RISK FACTORS HISTORY OF: MEDICATIONS: EXAM MEASUREMENTS: Bone mineral densitometry was performed using the [employer]. Bone mineral density as measured about the Lumbar spine is: ----- L2-L4(G/cm2): 1.241 T Score Values are as follows: ----- L1: unavailable ----- L2: -2.2 ----- L3: 0.1 ----- L4: 3.0 ----- L2-L4: 0.3 Z Score Values are as follows: ----- L1: unavailable ----- L2: -1.6 ----- L3: 0.7 ----- L4: 3.6 ----- L2-L4: 0.9 Bone mineral density has: Increased 0.5% since study of: 03-22-10 Bone mineral density about the R hip (g/cm2): 0.936 Bone mineral density about the L hip (g/cm2): 0.933 T Score values are as follows: -----R Neck: -1.2 -----L Neck: -1.2 -----R Total: -0.6 -----L Total: -0.6 Z Score values are as follows: -----R Neck: -0.3 -----L Neck: -0.3 -----R Total: 0.0 -----L Total: 0.0 Bone mineral density has: Decreased 13.3% since study of: 03-22-10 FRAX%s: The graph provided illustrates a 13.2% chance for a major osteoporotic fx and a 1.2% chance f or the hips probability for fx in 10 years time. IMPRESSION: Osteopenia (T Score between -2.5 and -1). There is slightly increased risk of fracture and the patient may be considered for treatment. Re-Screen 2-5 years. NOTE: T-SCORE=SD OF THE YOUNG ADULT MEAN. [facility], , 04/14/2024 7:40 AM
== END | disposition home or self-care (01) ==
LOC: RADMAMWWP 12:45
PROVIDERS: ATTEND Family Medicine
DX: Z12.31 Encounter for screening mammogram for malignant neoplasm of breast (principal); Z78.0 Asymptomatic menopausal state
CPT/HCPCS: 77063; 77067; 77080